=== PATIENT | male | born 1935 | race Caucasian/White ===

== ENCOUNTER 2017-04-04 06:17 | Observation (INO) ==
[2017-04-04] MEDS ORDERED: Aspirin 325 MG TABLET PO ONE (06:38)
[2017-04-04] MEDS: Nitroglycerin 0.4 MG TAB.SUBL SL ONE ×2 (06:53→07:36)
[2017-04-04 06:56] LABS: Basophils % 0.4 %; Eosinophils # 0.1 K/mcL (0.0-0.6); Eosinophils % 1.6 %; Hematocrit 31.2 % (37.5-50.1); Hemoglobin 10.1 g/dL (12.9-16.9); Immature Granulocytes % 0.4 % (0-4); Lymphocytes # 1.3 K/mcL (0.6-4.6); Lymphocytes % 26.2 %; Mean Corpuscular HGB Conc 32.4 g/dL (31.6-35.5); Mean Corpuscular Hemoglobin 32.4 pg (28.0-33.3); Mean Platelet Volume 8.9 fL (9.4-12.4); Monocytes # 0.5 K/mcL (0.0-1.3); Monocytes % 9.1 %; Neutrophils # 3.2 K/mcL (1.6-8.9); Platelet Count 166 K/mcL (140-400); Red Blood Count 3.12 M/mcL (4.19-5.50); Segmented Neutrophils % 62.3 %
--- NOTE | 2017-04-04 06:57 | Emergency Department Note ---
START Narrative - START START: 81-year-old male history of dialysis with Dr. Padgett presents with chest pain arrests that woke him up this morning, briefly patient has for a 10 chest pain with radiation into his left arm, he has nitroglycerin at home but did not take any, he did take an 81 mg aspirin, and was brought in by private vehicle for evaluation. Patient still is having chest pain, he is was an outpatient stress test today, basic chest pain workup was ordered, aspirin and nitroglycerin, likely admission see documentation by Dr. Piña and Dr. Khan <Mayo Ortiz - Last Filed: 04/04/17 06:56> Attestation Statement - Attestation Attestation: I, Andrew Hernandez MD, personally evaluated this patient and discussed their management with the resident physician. I reviewed the resident's note and agree with the documented findings, medical decision making, and plan of care. 81-year-old male with prior history of known coronary artery disease end-stage renal disease on hemodialysis presents to the emergency department with a complaint that he was awakened at 3 AM with a sharp stabbing left sided chest pain. This pain only lasted a few seconds but ever since he has continued to have a dull pressure-like pain in the left chest. He had another sharp stabbing pain in the left chest about 5 AM. No shortness of breath or diaphores No radiation of the pain. No nausea or vomiting. No cough or fever. On examination patient is in no acute distress. Heart regular rate and rhythm. Breath sounds are clear and equal bilaterally. Chest pain workup initiated. At shift change patient is being signed out to the oncoming dayshift team, Dr. Piña and Dr. Khan. <Andrew Hernandez - Last Filed: 04/04/17 07:23>
[2017-04-04 06:59] LABS: INR 1.1; Prothrombin Time 12.1 Seconds (9.4-12.1)
[2017-04-04 07:02] LABS: Activated Partial Thrombo Time 33.5 Seconds (26.0-36.0)
[2017-04-04 07:07] LABS: Calcium 9.3 mg/dL (8.6-10.8); Potassium 4.3 mEq/L (3.5-4.5)
--- NOTE | 2017-04-04 07:20 | Emergency Department Note ---
Disposition Clinical Impression: Chest pain Qualifiers: Chest pain type: unspecified Qualified Code(s): R07.9 - Chest pain, unspecified Disposition: Admitted As Inpatient Condition: Good Time of Disposition: 07:47 Chest Pain HPI - General Chief Complaint: ED Chest Pain Stated Complaint: CP Time Seen by Provider: 04/04/17 06:37 Source: patient Limitations: no limitations Vital Signs Reviewed: Yes Nursing Notes Reviewed: Yes - History of Present Illness HPI Narrative: 81-year-old male history of end-stage renal disease hemodialysis Saturday with Dr. Muniz, hypertension, hyperlipidemia, CAD s/p 1 stent presents with chest pain. States he woke up sharp left-sided chest pain radiation to the left arm around 0300. Resolved with rest. Denies any associated diaphoresis, shortness of breath, nausea or vomiting. Symptoms returned at 0500 and since then has been experiencing some pressure. He takes an Aspirin and Plavix daily. States the symptoms have been ongoing for the past week. He was scheduled for a stress test later today 0930 by his mens locker room attendant Dr. Muniz. Denies any recent illness, fevers, cough. Denies any other complaints. Denies history of blood clot, long distance travel, surgery. Does not take any other anticoagulants. He takes Lasix daily for swelling in his legs. His iv therapy nurse is Dr. Weeks Severity scale (1-10): 2 - Related Data Home Medications Medication Instructions Recorded Confirmed Aspirin Enteric Coated [Aspirin EC] 81 mg PO DAILY 04/04/17 04/04/17 Calcium Acetate [Phos-LO] 1,334 mg PO QPM 04/04/17 04/04/17 Calcium Acetate [Phos-LO] 667 mg PO BIDWM 04/04/17 04/04/17 Clopidogrel [Plavix] 75 mg PO DAILY 04/04/17 04/04/17 Furosemide [Lasix] 40 mg PO BID 04/04/17 04/04/17 Isosorbide MONOnitrate (24 HR) 30 mg PO BID 04/04/17 04/04/17 [Imdur] Nitroglycerin [Nitrostat] 0.4 mg SL Q5M PRN 04/04/17 04/04/17 [place]-3/Dha/Epa/Fish Oil [Fish Oil 1,000 mg PO DAILY 04/04/17 04/04/17 1,000 mg Softgel] Renal Vitamin [Renal Caps Softgel] 1 mg PO DAILY 04/04/17 04/04/17 Simvastatin [Zocor] 40 mg PO HS 04/04/17 04/04/17 Terazosin HCl 10 mg PO HS 04/04/17 04/04/17 Allergies Allergy/AdvReac Type Severity Reaction Status Date / Time No Known Allergies Allergy Verified 04/04/17 06:22 All systems ED: reviewed and negative except as stated. Review of Systems: As Per HPI Constitutional: Denies: fever, chills ENT ED: Denies: congestion, dysphagia Cardiovascular: Reports: chest pain. Denies: dyspnea on exertion Respiratory: Denies: cough, dyspnea Gastrointestinal: Denies: abdominal pain, nausea, vomiting Genitourinary: Denies: urgency, dysuria Musculoskeletal: Denies: back pain, neck pain Integumentary: Denies: rash, abrasion Neurological: Denies: headache Psychiatric: Denies: anxiety, depression Chest Pain PMH - Past Medical History Medical history: Reports: hyperlipidemia, hypertension, myocardial infarction, renal disease Psychiatric history: Reports: no psych history - Social History Smoking Status: Never smoker Alcohol use: Reports: none Drug use: Reports: none Physical Exam - General Limitations: no limitations General appearance: alert, in no apparent distress - Head Head exam: atraumatic, normocephalic, normal inspection - Eye Eye exam: Present: normal appearance, PERRL, EOMI. Absent: scleral icterus - ENT ENT exam: normal exam, normal oropharynx, mucous membranes moist - Neck Neck exam: Present: normal inspection, full ROM, trachea midline - Chest Chest inspection: Present: normal inspection, symmetric chest wall rise. Absent : tenderness, rash - Respiratory Respiratory exam: Present: normal lung sounds bilaterally. Absent: respiratory distress, wheezes - Cardiovascular Cardiovascular exam: Present: regular rate, normal rhythm, normal heart sounds, systolic murmur - Abdominal Exam Abdominal exam: Present: soft, Non-Tender, normal bowel sounds, hernia ( umbilical, easily reducible). Absent: tenderness, distention, guarding, rebound , rigidity - Extremities Exam Extremities exam: Present: normal inspection, full ROM, normal capillary refill , pedal edema (+1 bilateral), other (left arm fistula, palpable thrill and audible bruit). Absent: tenderness, calf tenderness - Back Exam Back exam: Present: normal inspection, full ROM. Absent: tenderness - Neurological Exam Neurological exam: Present: alert, oriented X3 - Psychiatric Psychiatric exam: Present: normal affect, normal mood - Skin Skin exam: Present: warm, dry, intact, normal color. Absent: cyanosis, diaphoresis Course - Reevaluation(s) Reevaluation #1: Chest pain workup initiated. Patient has received a full dose aspirin here. He has received one nitro and only complains of some chest pressure. Blood pressure remains stable SBP 110. Troponin was elevated 0.05. His creatinine is 4.7. Prior troponin 0.04 about 3 months ago. E.g. does not show any acute ischemic changes. Patient will benefit admission for chest pain workup to evaluate acute coronary syndrome. Chest x-ray does not reveal any cardiopulmonary process. Patient has chronic anemia. Time: 07:24 Reevaluation #2: Patient continues a have ongoing pressure. States this has been persistent over the past 2 weeks. Additional nitroglycerin given with no relief. I repeat EKG performed 0739 shows similar findings no acute ischemic changes. Patient will be admitted for chest pain rule out ACS. Patient will be started on low dose ACS heparin drip. Denies any bloody stool, black tarry stool, or hemoptysis. Impression is chest pain. Time: 07:41 - Consultations Consultation #1: Spoke with on-call hospitalist doreen Culp to admit for chest pain R/O ACS. No further orders at this time Time: 07:47 Vital Signs Temperature 98.1 F 04/04/17 06:19 Pulse Rate 82 04/04/17 06:19 Respiratory Rate 20 04/04/17 06:19 Blood Pressure 129/64 04/04/17 06:19 O2 Sat by Pulse Oximetry 97 04/04/17 06:19 Temperature 97.8 F 04/04/17 08:35 Pulse Rate 83 04/04/17 08:35 Respiratory Rate 18 04/04/17 08:35 Blood Pressure 116/57 04/04/17 08:35 O2 Sat by Pulse Oximetry 95 04/04/17 08:35 Oxygen Delivery Oxygen Delivery Room Air Chest Pain - MDM Narrative Medical decision making narrative: Patient was discussed with my attending physician who agrees with ED management and final disposition. They independently evaluated the patient. Please refer to their attestation to this encounter for additional information. This note was generated by [employer] voice recognition software and as a result grammatical or spelling errors may occur using this program. - Medical Records Medical records reviewed: Yes I reviewed the patient's medical records. - Lab Data Lab results reviewed: Yes I reviewed the patient's lab results. Result diagrams: 04/04/17 06:37 04/04/17 06:37 Lab Results 04/04/17 04/04/17 04/04/17 Range/Units 06:37 06:37 06:37 WBC 5.1 (4.3-11.1) K/mcL RBC 3.12 L (4.19-5.50) M/mcL Hgb 10.1 L (12.9-16.9) g/dL Hct 31.2 L (37.5-50.1) % MCV 100.0 (83.0-100.0) fL MCH 32.4 (28.0-33.3) pg MCHC 32.4 (31.6-35.5) g/dL RDW 14.0 (11.5-14.5) % Plt Count 166 (140-400) K/mcL MPV 8.9 L (9.4-12.4) fL Immature Gran % 0.4 (0-4) % Seg Neutrophils % 62.3 % Lymphocytes % 26.2 % Monocytes % 9.1 % Eosinophils % 1.6 % Basophils % 0.4 % Neutrophils # 3.2 (1.6-8.9) K/mcL Lymphocytes # 1.3 (0.6-4.6) K/mcL Monocytes # 0.5 (0.0-1.3) K/mcL Eosinophils # 0.1 (0.0-0.6) K/mcL Basophils # 0.0 (0.0-0.2) K/mcL PT 12.1 (9.4-12.1) Seconds INR 1.1 APTT 33.5 (26.0-36.0) Seconds Sodium 138 (136-145) mEq/L Potassium 4.3 (3.5-4.5) mEq/L Chloride 95 L (98-109) mEq/L Carbon Dioxide 28 (19-29) mEq/L BUN 28 H (8-26) mg/dL Creatinine 4.77 H (0.72-1.25) mg/dL Est GFR ( Amer) 14 L (> 60) Est GFR (Non-Af Amer) 12 L (> 60) BUN/Creatinine Ratio 6 (6-26) Glucose 97 (70-99) mg/dL Calculated Osmolality 291 (280-300) Calcium 9.3 (8.6-10.8) mg/dL Troponin I (0-0.03) ng/mL B-Natriuretic Peptide (0-100) pg/mL 04/04/17 04/04/17 Range/Units 06:37 06:37 WBC (4.3-11.1) K/mcL RBC (4.19-5.50) M/mcL Hgb (12.9-16.9) g/dL Hct (37.5-50.1) % MCV (83.0-100.0) fL MCH (28.0-33.3) pg MCHC (31.6-35.5) g/dL RDW (11.5-14.5) % Plt Count (140-400) K/mcL MPV (9.4-12.4) fL Immature Gran % (0-4) % Seg Neutrophils % % Lymphocytes % % Monocytes % % Eosinophils % % Basophils % % Neutrophils # (1.6-8.9) K/mcL Lymphocytes # (0.6-4.6) K/mcL Monocytes # (0.0-1.3) K/mcL Eosinophils # (0.0-0.6) K/mcL Basophils # (0.0-0.2) K/mcL PT (9.4-12.1) Seconds INR APTT (26.0-36.0) Seconds Sodium (136-145) mEq/L Potassium (3.5-4.5) mEq/L Chloride (98-109) mEq/L Carbon Dioxide (19-29) mEq/L BUN (8-26) mg/dL Creatinine (0.72-1.25) mg/dL Est GFR ( Amer) (> 60) Est GFR (Non-Af Amer) (> 60) BUN/Creatinine Ratio (6-26) Glucose (70-99) mg/dL Calculated Osmolality (280-300) Calcium (8.6-10.8) mg/dL Troponin I 0.05 H* (0-0.03) ng/mL B-Natriuretic Peptide 261 H (0-100) pg/mL - Radiology Data Radiology results reviewed: Yes I reviewed the patient's radiology results. Chest X-Ray 04/04/17 06:22 IMPRESSION: No acute cardiopulmonary disease. D/ / Etienne Ley MD / Etienne Ley MD Interpreting Provider: Etienne Ley MD - EKG Data EKG attestation: Yes I reviewed and interpreted this EKG. EKG results narrative: EKG performed 620 sinus rhythm 79 bpm there are premature ventricular complexes , narrow QRS 82, no ST elevations or depression, no T wave inversion, good R wave progression, intervals are within normal limits. Compared to old EKG 01/13 shows similar consistent findings of sinus rhythm with occasional supraventricular premature complexes. No acute ischemic changes. Heart Score - Score History: Slightly Suspicious EKG: Normal Age: Greater than 65 Risk Factors: Equal/Greater than 3 risk factor or history of atherosclerotic disease Troponin: Less than normal limit HEART Score Total: 4 Attestation Statement - Attestation Attestation: I examined this patient and my medical decision-making was reviewed with the Resident Physician. I agree with the documented findings, disposition and treatment plan as described except to the extent set forth below. Chest pain is gone, pressure persists but is significantly improved. Associated w SOB, no SOB currently. No sx of GIB or other abnormal bleeding, asked by Dr. Piña and confirmed by me. Repeat EKG unchanged, pain now persistent for 2-3 weeks. Agree with admisison for further eval.
[2017-04-04] MEDS ORDERED: 0.9 % Sodium Chloride 500 ML ONE (07:33)
[2017-04-04] MEDS ORDERED: Nitroglycerin 0.4 MG TAB.SUBL SL ONE (07:33)
[2017-04-04] MEDS ORDERED: 0.9 % Sodium Chloride 1,000 ML IVC SCH (07:45)
[2017-04-04] MEDS ORDERED: *HR* Morphine 2 MG/ML SYRINGE IVP ONE (07:47)
[2017-04-04] MEDS ORDERED: *HR* Heparin 5,000 UNIT/ML VIAL IVP PRN ×2 (07:47)
[2017-04-04] MEDS ORDERED: *HR* Heparin 5,000 UNIT/ML VIAL IVP ONE (07:47)
[2017-04-04] MEDS ORDERED: Heparin 25,000 UNIT/500 ML D5W 25,000 UNIT/500 ML MLS IVC SCH (08:00)
--- NOTE | 2017-04-04 09:07 | Internal Med History&Physical ---
Date of Encounter: 04/04/17 Time of Encounter: 08:00 Assessment and Plan (1) Chest pain Current visit: Yes Status: Acute -Patient with history of coronary artery disease with stent 1 in 2006 -In the ER, patients first troponin was 0.05 but no significant EKG changes. -Will trend cardiac biomarkers and order echocardiogram. -Will consult cardiology and appreciate recommendations. Qualifiers: Chest pain type: unspecified Qualified Code(s): R07.9 - Chest pain, unspecified (2) CAD (coronary artery disease) Current visit: Yes Status: Acute -History of coronary artery disease with stent 1 in 2006 -Workup as above Qualifiers: Qualified Code(s): I25.10 - Atherosclerotic heart disease of [place] coronary artery without angina pectoris (3) ESRD (end stage renal disease) on dialysis Current visit: Yes Status: Acute -Patient managed on hemodialysis by nephrology () scheduled on Wednesdays and Fridays. -Will consult nephrology and appreciate recommendations. (4) HTN (hypertension) Current visit: Yes Status: Acute -Continue home medications Qualifiers: Hypertension type: essential hypertension Qualified Code(s): I10 - Essential (primary) hypertension (5) HLD (hyperlipidemia) Current visit: Yes Status: Acute -Continue home medications Qualifiers: Hyperlipidemia type: unspecified Qualified Code(s): E78.5 - Hyperlipidemia , unspecified (6) Chronic anemia Current visit: Yes Status: Acute -Stable; suspect secondary to end-stage renal disease -Will continue to monitor. (7) DVT prophylaxis Current visit: Yes Status: Acute -Subcutaneous heparin Internal Medicine - H&P: HPI Chief complaint: chest pain Admitted From: Home Plans for Post Hospital Care: Home History of present illness: Patient is a 81-year-old male with past medical history significant for end- stage renal disease, coronary artery disease (stent 1 in 2006) hypertension and hyperlipidemia who presents to the ER on 04/04/17 with chest pain. Patient reports that substernal chest pain woke him up this morning with a severity of 7 out of 10 lasting for seconds without any provoking or relieving factors. Patient denies any radiation of pain and denies any associated symptoms. Patient states that his body bumper was setting up a stress test for him in the near future. In the ER, patients first troponin was 0.05 but no significant EKG changes. Patient will be admitted to the medical surgical floor for ACS rule out. Past Med Surg Social Fam HX - Past Medical History Medical history: hyperlipidemia, hypertension, myocardial infarction, renal disease Psychiatric history: no psych history - Social History Smoking Status: Never smoker Smokeless Tobacco Status: No Alcohol use: none Drug use: none Internal Medicine - H&P: Meds 3 Allergy/AdvReac Type Severity Reaction Status Date / Time No Known Allergies Allergy Verified 04/04/17 06:22 All Systems PM: A 10-system review of systems was performed and is negative for pertinent findings except as documented above in the HPI. - Constitutional Vitals: Temp Pulse Resp BP Pulse Ox 97.8 F 83 18 116/57 95 04/04/17 08:35 04/04/17 08:35 04/04/17 08:35 04/04/17 08:35 04/04/17 08:35 General appearance: Present: A&O X 3, no acute distress - Head Head exam: Present: normocephalic - Eye Eye exam: Present: normal appearance - ENT ENT exam: Present: mucous membranes moist - Respiratory Respiratory exam: Present: CTAB. Absent: accessory muscle use, rales, rhonchi, wheezes - Cardiovascular Cardiovascular exam: Present: RRR, +S1, +S2. Absent: diastolic murmur, gallop, rubs, systolic murmur - GI/Abdominal GI/Abdominal exam: Present: normal bowel sounds, soft, no peritoneal signs. Absent: distended, tenderness - Extremities Exam Extremities exam: Present: pedal edema - Neurological Exam Neurological exam: Present: oriented X3, no focal deficits - Psychiatric Psychiatric exam: Present: normal mood - Skin Skin exam: Present: normal color Internal Med - H&P Results - Labs CBC & Chem 7: 04/04/17 06:37 04/04/17 06:37
[2017-04-04] MEDS ORDERED: Naloxone 0.4 MG/ML INJ IVP PRN (09:17)
--- NOTE | 2017-04-04 10:11 | Nephrology Consult Note ---
Date of Encounter: 04/04/17 Time of Encounter: 09:55 Assessment and Plan (1) ESRD (end stage renal disease) on dialysis Current Visit: Yes Status: Acute Chest pain, cardiac workup in progress. Possible LHC today. ESRD-No HD today, keeping MWF schedule. (2) Chest pain Current Visit: Yes Status: Acute Qualifiers: Chest pain type: unspecified Qualified Code(s): R07.9 - Chest pain, unspecified History of Present Illness - Reason for Consult end stage renal disease - History of Present Illness Mr. 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 Last dialysis yesterday. Mr. Del Cid presented to ER this morning by private vehicle with transient episodes of chest pain that awakened him at 0300 and 0500. Left sided 7/10. He states he did not take his NTG but did take a low dose aspirin. Other PMH- hypertension, hyperlipidemia, CAD s/p 1 stent. In ER, EKG without significant changes, trop 0.05. Mr. Del Cid was scheduled outpatient today for stress test. At time of consult, he states he is pain free and thinks may be going for LHC today. Son at bedside. Past Med Surg Social Fam HX - Past Medical History Medical history: hyperlipidemia, hypertension, myocardial infarction, renal disease Psychiatric history: no psych history - Social History Smoking Status: Never smoker Smokeless Tobacco Status: No Alcohol use: none Drug use: none - Family History Father Living Status: Cause of : cancer Mother Living Status: Cause of : MD Hx Family Cardiac Disorders: Yes Medications and Allergies Aspirin Enteric Coated [Aspirin EC] 81 mg PO DAILY 04/04/17 [History] Clopidogrel [Plavix] 75 mg PO DAILY 04/04/17 [History] Furosemide [Lasix] 40 mg PO BID 04/04/17 [History] Isosorbide MONOnitrate (24 HR) [Imdur] 30 mg PO BID 04/04/17 [History] Nitroglycerin [Nitrostat] 0.4 mg SL Q5M PRN 04/04/17 [History] [place]-3/Dha/Epa/Fish Oil [Fish Oil 1,000 mg Softgel] 1,000 mg PO DAILY 04/04/17 [History] Renal Vitamin [Renal Caps Softgel] 1 mg PO DAILY 04/04/17 [History] Simvastatin [Zocor] 40 mg PO HS 04/04/17 [History] Terazosin HCl 10 mg PO HS 04/04/17 [History] 3 Allergy/AdvReac Type Severity Reaction Status Date / Time No Known Allergies Allergy Verified 04/04/17 06:22 Review of Systems All Systems: reviewed and no additional remarkable complaints except as stated Exam - Vital Signs Vital signs: Initial Vital Signs Temp Pulse Resp BP Pulse Ox 98.1 F 82 20 129/64 97 04/04/17 06:19 04/04/17 06:19 04/04/17 06:19 04/04/17 06:19 04/04/17 06:19 Vital Signs - Last 8 Hours Temp Pulse Resp BP Pulse Ox 04/04/17 08:35 97.8 F 83 18 116/57 95 04/04/17 08:34 18 116/71 Intake and Output 04/03/17 04/04/17 04/04/17 23:59 07:59 15:59 Other: Meal npo Percent of Meal Consumed 0% - General Appearance General appearance: well-developed, well-nourished, appears started age EENT: mucous membranes moist Neck: no JVD Respiratory: clear Cardiology: edema, regular rate, regular rhythm Gastrointestinal: normoactive bowel sounds, no tenderness, distended Integumentary: warm and dry Neurologic: alert and oriented x3 Psychiatric: mood/affect appropriate, cooperative Results - Lab Results 04/04/17 06:37 04/04/17 06:37 Most recent lab results Calcium 9.3 mg/dL (8.6-10.8) 04/04/17 06:37 Consult Discharge Plan - Plan Referrals: NONE,PCP [Primary Care Provider] -
[2017-04-04 13:31] LABS: Hematocrit 29.6 % (37.5-50.1); Hemoglobin 9.7 g/dL (12.9-16.9); Mean Corpuscular HGB Conc 32.8 g/dL (31.6-35.5); Mean Corpuscular Hemoglobin 32.6 pg (28.0-33.3); Mean Corpuscular Volume 99.3 fL (83.0-100.0); Mean Platelet Volume 8.6 fL (9.4-12.4); Platelet Count 129 K/mcL (140-400); Red Blood Count 2.98 M/mcL (4.19-5.50); Red Cell Distribution Width 13.8 % (11.5-14.5)
--- NOTE | 2017-04-04 13:31 | Cardiology Consult Note ---
<WillianGabrieladave Maki - Last Filed: 04/04/17 13:50> Date of Encounter: 04/04/17 Time of Encounter: 12:30 Assessment and Plan (1) Chest pain Current Visit: Yes Status: Acute Per cardiology: -Admits to chest "pressure" that has been constant. -Reports woke up with chest pain that was sharp, lasted a few seconds. Resolved spontaneously. -Denies exertional symptoms. -Denies current chest pain, however admits to chest pressure that has been constant for a few weeks. -ECG with SR, frequent PVCs. -Troponin mildly elated. -TTE pending. -On heparin drip. -Will continue to monitor. -Trend troponins. Qualifiers: Chest pain type: unspecified Qualified Code(s): R07.9 - Chest pain, unspecified (2) Elevated troponin Current Visit: Yes Status: Acute Per cardiology: -Troponin 0.05. -ECG with SR, frequent PVCs. -Denies current chest pain, however admits to pressure. -TTE pending. -Trend troponins. Pending results consider stress vs. LHC. (3) ESRD (end stage renal disease) on dialysis Current Visit: Yes Status: Chronic Per cardiology: -KNown ESRD on dialysis. -Management per primary and nephrology services. (4) CAD (coronary artery disease) Current Visit: Yes Status: Chronic Per cardiology: -Known CAD with previous LHC 2007 with primary investigative research specialist noted reviewed and reported RCA stent and 70% LAD lesion, not amendable to PCI. -PRevious TTE 2013 with LVEF 60-65%, no wall motion abnormalities. -TTE pending. -Continue pateint's asa, statin, and plavix. -Further recommendations pending TTE and troponin trend. -Per review of home medication list, do not see patient was on a beta marylou. Will add low dose beta marylou. Qualifiers: Coronary Disease-Associated Artery/Lesion type: [place] artery [place] vs. transplanted heart: [place] heart Associated angina: with unspecified angina Qualified Code(s): I25.119 - Atherosclerotic heart disease of [place] coronary artery with unspecified angina pectoris Discussion w patient/family: The assessment and plan as outlined above was discussed with the patient who expressed understanding and agreement. All questions were answered. Thank you for involving us in the care of your patient. Please call with any questions. Discussed and reviewed with . History of Present Illness Consult date: 04/04/17 Requesting physician: Gerber Leiva Consult reason: chest pain Chief complaint: chest pain History of present illness: Mr. Del Cid is a 81 year old male with a relevant past medical history of CAD s/p PCI 2007, ESRD on dialysis, hyperlipidemia, DC, DM. Patient states for the past 2 weeks has had constant "chest pressure." Patient states had a stress test ordered by asp net software developer. Patient denies aggravating or alleviating factors with chest pressure. Patient denies exertional chest pain. Patient states today he was awaken by sharp chest pain about 0300. Patient states pain lasted for a few seconds and resolved spontaneoulsy. Patient reports around 0500 he had sudden onset on same sharp chest pain while resting in his chair. Patient denies current chest pain, however has chest pressure that is constant. Patient denies increased shortness of breath or increased fatigue. Past Med Surg Social Fam HX - Past Medical History Attestation: Yes The following information was validated with the patient. Source: patient, old records reviewed Medical history: hyperlipidemia, hypertension, myocardial infarction, renal disease Psychiatric history: no psych history - Social History Smoking Status: Never smoker Smokeless Tobacco Status: No Alcohol use: none Drug use: none - Family History Father Living Status: Cause of : cancer Mother Living Status: Cause of : DC Hx Family Cardiac Disorders: Yes Medications and Allergies Aspirin Enteric Coated [Aspirin EC] 81 mg PO DAILY 04/04/17 [History] Clopidogrel [Plavix] 75 mg PO DAILY 04/04/17 [History] Furosemide [Lasix] 40 mg PO BID 04/04/17 [History] Isosorbide MONOnitrate (24 HR) [Imdur] 30 mg PO BID 04/04/17 [History] Nitroglycerin [Nitrostat] 0.4 mg SL Q5M PRN 04/04/17 [History] [place]-3/Dha/Epa/Fish Oil [Fish Oil 1,000 mg Softgel] 1,000 mg PO DAILY 04/04/17 [History] Renal Vitamin [Renal Caps Softgel] 1 mg PO DAILY 04/04/17 [History] Simvastatin [Zocor] 40 mg PO HS 04/04/17 [History] Terazosin HCl 10 mg PO HS 04/04/17 [History] 3 Allergy/AdvReac Type Severity Reaction Status Date / Time No Known Allergies Allergy Verified 04/04/17 06:22 All Systems Review: A 10-system review of systems was performed and is negative for pertinent findings except as documented above in the HPI. - Cardiovascular Cardiovascular: as per HPI, chest pain at rest Physical Examination Vital Signs, Last 4 Hours Temp Pulse Resp BP Pulse Ox 04/04/17 11:50 97.6 F 88 17 126/66 96 General: Conversant, No Apparent Distress HEENT: Atraumatic, Normocephaly, Mucus Membranes Moist Neck: No JVD, Normal carotid pulses Cardiac: Reg Rate and Rhythm, Normal S1 and S2, No Murmur Lungs: Normal Breath Sounds, No Wheeze, Rales, Rhonchi Neuro: Alert and responsive, No focal deficits noted Abdomen: Soft, Non-Tender Skin: No rashes noted on visualized skin Musculoskeletal: No Chest Wall Tenderness Extremities: No Clubbing, No Cyanosis, Normal Pulses, Other (Mild bilateral pedal edema noted, non-pitting. ) Results 04/04/17 13:23 04/04/17 06:37 Impressions Chest X-Ray 04/04/17 06:22 IMPRESSION: No acute cardiopulmonary disease. D/ / Etienne Ley MD / Etienne Ley MD Interpreting Provider: Etienne Ley MD Active Medications Heparin Sodium (Porcine) (Heparin) 4,000 unit IVP Q6HR PRN PRN Reason: SEE COMMENTS Stop: 10/04/17 07:48 Heparin Sodium (Porcine) (Heparin) 2,000 unit IVP Q6H PRN PRN Reason: SEE COMMENTS Stop: 10/04/17 07:48 Sodium Chloride (0.9 % Sodium Chloride) 1,000 mls @ 50 mls/hr IVC .Q20H BLANCA Stop: 10/04/17 07:46 Heparin Sodium/Dextrose (Heparin 25,000 Unit/500 Ml D5w) 25,000 unit in 500 mls @ 20.684 mls/hr IVC .Q24H BLANCA; 12 UNIT/KG/HR PRN Reason: Protocol Stop: 10/04/17 08:01 Last Admin: 04/04/17 08:04 Dose: 12 unit/kg/hr, 20.684 mls/hr Naloxone HCl (Narcan) 0.4 mg IVP Q2MIN PRN PRN Reason: Opioid Reversal Stop: 10/04/17 09:18 Laboratory Tests 04/04/17 04/04/17 04/04/17 06:37 06:37 06:37 Hgb 10.1 L Creatinine 4.77 H Troponin I 0.05 H* - Imaging and Cardiology Chest Xray: report reviewed Stress Test: report reviewed Echo: pending, report reviewed - EKG Interpretation EKG results cardiology: personally reviewed (ECG with SR, PVCs, HR 86.), other ( Telemetry reviewed with average HR noted to be 86, SR. PVCs and PACs noted.) Consult Discharge Plan - Plan Referrals: NONE,PCP [Primary Care Provider] - <Melissa Tucker - Last Filed: 04/04/17 14:27> Date of Encounter: 04/04/17 - Attending Attestation 81 YOM with h/o PCI to the RCA and LAD 70% disease in 2006 who presents with typical angina. Patient with h/o ESRD on HD with trivial troponins and unremarkable EKG. NST and ECHO to evaluate for ischemia and SHD. Assessment and Plan Discussion w patient/family: The assessment and plan as outlined above was discussed with the patient and/or family members who expressed understanding and agreement. All questions were answered. Thank you for involving us in the care of your patient. Please call with any questions. History of Present Illness History of present illness: Mr. Del Cid is a 81 year old male All Systems Review: A 10-system review of systems was performed and is negative for pertinent findings except as documented above in the HPI. Physical Examination Vital Signs, Last 4 Hours Temp Pulse Resp BP Pulse Ox 04/04/17 11:50 97.6 F 88 17 126/66 96 Results 04/04/17 13:23 04/04/17 06:37 Lab Results 04/04/17 04/04/17 04/04/17 13:23 13:23 13:23 WBC 4.8 Hgb 9.7 L Hct 29.6 L Plt Count 129 L INR 1.2 APTT 102.0 H D Troponin I 0.03
[2017-04-04 13:36] LABS: INR 1.2; Prothrombin Time 12.7 Seconds (9.4-12.1)
--- NOTE | 2017-04-04 18:59 | Electrocardiograph Report ---
[place] [id number] Test Date: 2017-04-04 Pat Name: George Del Cid Department: 102 Room: 2A Gender: M Paper Coating Supervisor: : 1935 Requested By: Andrew Hernandez Order Number: [id number] Reading MD: Ernst Pino DO Measurements Intervals [place] Rate: 79 P: 55 ME: 179 QRS: 0 QRSD: 82 T: 30 QT: 358 QTc: 393 Interpretive Statements SINUS RHYTHM WITH FREQUENT VENTRICULAR PREMATURE COMPLEXES Electronically Signed On 04-04-2017 18:57:58 EST by Ernst Pino DO
--- NOTE | 2017-04-04 19:00 | Electrocardiograph Report ---
[place] [id number] Test Date: 2017-04-04 Pat Name: George Del Cid Department: 104 Room: 2A Gender: M Compliance Program Manager: : 1935 Requested By: Alexander Piña Order Number: [id number] Reading MD: Ernst Pino DO Measurements Intervals [place] Rate: 86 P: 73 PA: 177 QRS: -16 QRSD: 84 T: 33 QT: 389 QTc: 432 Interpretive Statements SINUS RHYTHM WITH FREQUENT VENTRICULAR PREMATURE COMPLEXES Electronically Signed On 04-04-2017 18:58:31 EST by Ersnt Pino DO
[2017-04-05 02:40] LABS: Basophils % 0.6 %; Eosinophils # 0.1 K/mcL (0.0-0.6); Eosinophils % 2.2 %; Hematocrit 29.7 % (37.5-50.1); Hemoglobin 9.7 g/dL (12.9-16.9); Immature Granulocytes % 0.2 % (0-4); Lymphocytes # 1.1 K/mcL (0.6-4.6); Lymphocytes % 22.9 %; Mean Corpuscular HGB Conc 32.7 g/dL (31.6-35.5); Mean Platelet Volume 8.8 fL (9.4-12.4); Monocytes # 0.4 K/mcL (0.0-1.3); Monocytes % 8.8 %; Neutrophils # 3.2 K/mcL (1.6-8.9); Platelet Count 140 K/mcL (140-400); Red Blood Count 2.94 M/mcL (4.19-5.50); Red Cell Distribution Width 13.8 % (11.5-14.5); Segmented Neutrophils % 65.3 %
[2017-04-05 03:09] LABS: Calcium 8.4 mg/dL (8.6-10.8)
--- NOTE | 2017-04-05 09:26 | Nephrology Progress Note ---
Date of Encounter: 04/05/17 Time of Encounter: 09:05 - Assessment and Plan (1) ESRD (end stage renal disease) on dialysis Current Visit: Yes Status: Chronic Chest pain, cardiac workup in progress. Possible stress test today. ESRD- HD today, keeping MWF schedule. Orders given. (2) Chest pain Current Visit: Yes Status: Acute Qualifiers: Chest pain type: unspecified Qualified Code(s): R07.9 - Chest pain, unspecified Subjective Interval history: Resting quietly. Denies further chest pain. States to have stress test today. Objective - Vital Signs Vital signs: Vital Signs Temp Pulse Resp BP Pulse Ox 04/05/17 07:18 97.9 F 81 16 131/68 94 04/05/17 04:13 97.9 F 80 16 133/61 95 04/05/17 00:36 97.9 F 64 16 118/66 96 04/04/17 20:27 98.0 F 83 18 130/80 96 04/04/17 16:18 97.8 F 73 17 130/73 96 04/04/17 11:50 97.6 F 88 17 126/66 96 Intake and Output 04/04/17 04/05/17 04/05/17 23:59 07:59 15:59 Intake Total 103 / 103 129 / 129 Balance 103 / 103 129 / 129 Intake: IV Fluids 103 / 103 129 / 129 Heparin 25,000 UNIT/500 ML D5W 103 / 103 129 / 129 25,000 unit In 500 ml @ 12 UNIT /KG/HR 20.684 mls/hr IVC .Q24H BLANCA Rx#:[id number] Other: # Voids 1 Weight 86.183 kg Patient Weight 04/05/17 23:59 Weight 86.183 kg - General Appearance General appearance: Present: well-developed, well-nourished, appears started age EENT: Present: mucous membranes moist Neck: Present: no JVD Respiratory: Present: clear Cardiology: Present: edema, regular rate, regular rhythm Gastrointestinal: Present: normoactive bowel sounds, no tenderness Integumentary: Present: warm and dry Neurologic: Present: alert and oriented x3 Psychiatric: Present: mood/affect appropriate, cooperative - Lab 04/05/17 02:32 04/05/17 02:32 Most recent lab results Calcium 8.4 mg/dL (8.6-10.8) L 04/05/17 02:32 Consult Discharge Plan - Plan Referrals: NONE,PCP [Primary Care Provider] -
[2017-04-05] MEDS ORDERED: Aspirin Enteric Coated 81 MG Tablet PO SCH (10:00)
--- NOTE | 2017-04-05 10:26 | Cardiology Progress Note ---
Date of Encounter: 04/05/17 Time of Encounter: 09:00 Assessment and Plan (1) Chest pain Current Visit: Yes Status: Acute Per cardiology: -Denies current chest pain or pressure this morning. -ECG with SR, frequent PVCs. -Troponin mildly elated on admission. -TTE pending. -On heparin drip. -Will proceed with stress test this morning. -Further recommendations pending stress and TTE. Qualifiers: Chest pain type: unspecified Qualified Code(s): R07.9 - Chest pain, unspecified (2) Elevated troponin Current Visit: Yes Status: Acute Per cardiology: -Troponin 0.05, 0.03, 0.03, 0.03. -ECG with SR, frequent PVCs. -Denies current chest pain. -TTE pending. -Discussed and reviewed with , will proceed with stress test today. -Will discontinue heparin drip. (3) ESRD (end stage renal disease) on dialysis Current Visit: Yes Status: Chronic Per cardiology: -KNown ESRD on dialysis. -Management per primary and nephrology services. (4) CAD (coronary artery disease) Current Visit: Yes Status: Chronic Per cardiology: -Known CAD with previous [facility] 2007 with primary cubing machine tender noted reviewed and reported RCA stent and 70% LAD lesion, not amendable to PCI. -PRevious TTE 2013 with LVEF 60-65%, no wall motion abnormalities. -TTE pending. -on asa, statin, beta marylou, and plavix. -Further recommendations pending TTE stress. Qualifiers: Coronary Disease-Associated Artery/Lesion type: [place] artery [place] vs. transplanted heart: [place] heart Associated angina: with unspecified angina Qualified Code(s): I25.119 - Atherosclerotic heart disease of [place] coronary artery with unspecified angina pectoris Discussion w patient/family: The assessment and plan as outlined above was discussed with the patient who expressed understanding and agreement. All questions were answered. Thank you for involving us in the care of your patient. Please call with any questions. Discussed and reviewed with . Subjective Principal diagnosis: chest pain Interval history: Denies current chest pain or pressure. Objective Vital Signs, Last 4 Hours Temp Pulse Resp BP Pulse Ox 04/05/17 07:18 97.9 F 81 16 131/68 94 General: Conversant, No Apparent Distress HEENT: Atraumatic, Normocephaly, Mucus Membranes Moist Neck: No JVD, Normal carotid pulses Cardiac: Reg Rate and Rhythm, Normal S1 and S2, No Murmur Lungs: Normal Breath Sounds, No Wheeze, Rales, Rhonchi Neuro: Alert and responsive, No focal deficits noted Abdomen: Soft, Non-Tender Skin: No rashes noted on visualized skin Musculoskeletal: No Chest Wall Tenderness Extremities: No Clubbing, No Cyanosis, Normal Pulses, Other (Mild bilateral pedal edema noted, non-pitting. ) Results 04/05/17 02:32 04/05/17 02:32 Lab Results Active Medications Aspirin (Aspirin Ec) 81 mg PO DAILY BLANCA Stop: 10/05/17 10:01 Atorvastatin Calcium (Lipitor) 40 mg PO HS BLANCA Stop: 10/05/17 21:01 Heparin Sodium (Porcine) (Heparin) 4,000 unit IVP Q6HR PRN PRN Reason: SEE COMMENTS Stop: 10/04/17 07:48 Heparin Sodium (Porcine) (Heparin) 2,000 unit IVP Q6H PRN PRN Reason: SEE COMMENTS Stop: 10/04/17 07:48 Sodium Chloride (0.9 % Sodium Chloride) 1,000 mls @ 50 mls/hr IVC .Q20H BLANCA Stop: 10/04/17 07:46 Last Admin: 04/04/17 20:07 Dose: 50 mls/hr Heparin Sodium/Dextrose (Heparin 25,000 Unit/500 Ml D5w) 25,000 unit in 500 mls @ 20.684 mls/hr IVC .Q24H BLANCA; 12 UNIT/KG/HR PRN Reason: Protocol Stop: 10/04/17 08:01 Last Titration: 04/05/17 04:32 Dose: 10.32 unit/kg/hr, 17.8 mls/hr Metoprolol Tartrate (Lopressor) 12.5 mg PO BID BLANCA Stop: 10/04/17 21:01 Last Admin: 04/04/17 21:04 Dose: 12.5 mg Naloxone HCl (Narcan) 0.4 mg IVP Q2MIN PRN PRN Reason: Opioid Reversal Stop: 10/04/17 09:18 Laboratory Tests 04/04/17 04/04/17 04/04/17 06:37 13:23 19:48 Hgb Creatinine Troponin I 0.05 H* 0.03 0.03 12/08/17 12/08/17 12/08/17 02:32 02:32 02:32 Hgb 9.7 L Creatinine 5.67 H Troponin I 0.03 - Imaging and Cardiology Chest Xray: report reviewed Stress Test: pending Echo: pending - EKG Interpretation EKG results cardiology: other (Telemetry reviewed with average HR previous 12 hours noted to be 71, sinus rhythm. PVCs and PACs noted.) Consult Discharge Plan - Plan Referrals: NONE,PCP [Primary Care Provider] -
[2017-04-05] MEDS ORDERED: Regadenoson 0.4 MG/5 ML SYRINGE IVP ONE (11:09)
[2017-04-05 14:48] LABS: Hepatitis B Surface Antibody 0.48 mIU/mL; Hepatitis B Surface Antigen Nonreactive (Nonreactive)
[2017-04-05] MEDS ORDERED: 0.9 % Sodium Chloride 250 ML IVC PRN (15:00)
--- NOTE | 2017-04-05 16:04 | Discharge Summary ---
<CurtisJeet Lazaro - Last Filed: 04/05/17 16:02> Date of Encounter: 04/05/17 Time of Encounter: 16:02 - Discharge Diagnosis (1) Chest pain Priority: Primary Status: Acute Qualifiers: Chest pain type: unspecified Qualified Code(s): R07.9 - Chest pain, unspecified (2) CAD (coronary artery disease) Priority: Secondary Status: Chronic Qualifiers: Coronary Disease-Associated Artery/Lesion type: [place] artery [place] vs. transplanted heart: [place] heart Associated angina: with unspecified angina Qualified Code(s): I25.119 - Atherosclerotic heart disease of [place] coronary artery with unspecified angina pectoris (3) ESRD (end stage renal disease) on dialysis Priority: Secondary Status: Chronic (4) Chronic anemia Priority: Secondary Status: Acute (5) HLD (hyperlipidemia) Priority: Secondary Status: Acute Qualifiers: Hyperlipidemia type: unspecified Qualified Code(s): E78.5 - Hyperlipidemia , unspecified (6) HTN (hypertension) Priority: Secondary Status: Acute Qualifiers: Hypertension type: essential hypertension Qualified Code(s): I10 - Essential (primary) hypertension (7) DVT prophylaxis Priority: Secondary Status: Acute - Discharge Medications Prescriptions: Atorvastatin [Lipitor] 40 mg PO HS #30 tablet Metoprolol [Lopressor] 12.5 mg PO BID #60 tablet Home Medications: Aspirin Enteric Coated [Aspirin EC] 81 mg PO DAILY 04/04/17 [History] Clopidogrel [Plavix] 75 mg PO DAILY 04/04/17 [History] Furosemide [Lasix] 40 mg PO BID 04/04/17 [History] Isosorbide MONOnitrate (24 HR) [Imdur] 30 mg PO BID 04/04/17 [History] Nitroglycerin [Nitrostat] 0.4 mg SL Q5M PRN 04/04/17 [History] [place]-3/Dha/Epa/Fish Oil [Fish Oil 1,000 mg Softgel] 1,000 mg PO DAILY 04/04/17 [History] Renal Vitamin [Renal Caps Softgel] 1 mg PO DAILY 04/04/17 [History] Terazosin HCl 10 mg PO HS 04/04/17 [History] Atorvastatin [Lipitor] 40 mg PO HS #30 tablet 04/05/17 [Rx] Metoprolol [Lopressor] 12.5 mg PO BID #60 tablet 04/05/17 [Rx] Allergies/Adverse Reactions: 3 Allergy/AdvReac Type Severity Reaction Status Date / Time No Known Allergies Allergy Verified 04/04/17 06:22 Procedures/tests Complete & Pending: Procedures Performed prior 72 hours Category Date Time Status NM nena perf SPECT multi [NM] Routine Exams 04/05/17 09:49 Taken EV echocardiogram Routine Y 04/04/17 09:19 Completed SP pharm nuclear stress Routine Y 04/05/17 09:49 Completed Date of admission: 04/04/17 07:58 Primary care physician: PCP NONE Consults: 04/04/17 09:06 Consult to Nutrition [CONS] Routine Comment: Consulting Provider: NUTRITION Reason for Dietary Consult: MST Score 04/04/17 09:20 Consult to Cardiology [CONS] Routine Comment: Consulting Provider: Cardiology Maryam Reason for Consult: chest pain Time Notified: 09:30 Call Completed: Yes 04/04/17 09:21 Consult to Nephrology [CONS] Routine Consulting Provider: [facility] Spcarmand SEBASTIAN Reason for Consult: HD management Time Notified: 09:30 Call Completed: Yes 04/05/17 15:00 Consult to Dialysis [CONS] ONCE 04/06/17 15:00 Consult to Dialysis [CONS] ONCE Discharging clinician: Amor Reynolds Anticipated date of discharge: 04/05/17 - Patient Status Disposition: Home, Self-Care Condition: Fair Functional capacity at discharge: independent ambulation Overall status at discharge: patient is progressing back to baseline - Discharge Instructions Instructions: Coronary Artery Disease (DC), Chest Pain (DC), Chronic Hypertension (DC), Anemia (GEN) Follow Up With: Larry Ramos MD [Partnered Physician] - 04/11/17 9:30 am (Please follow up as schedule for hospital follow up) Additional Instructions: You have another appt. with Dr. Ramos on May 09 at 11:30 to get Established.. - Diet and Activity Activity: increase activity as tolerated Diet: advance to your usual diet Hospital course: Mr. Del Cid is a 81 year old male with past medical history significant for end- stage renal disease, coronary artery disease with stenting 1 in 2006, hypertension, hyperlipidemia who presented to the ER on 04/04/17 with chest pain. Chest pain was substernal which will come up in the a.m., 7/10 in severity without provoking factors. No radiation or other associated symptoms. Troponin initially elevated and ED at 0.05 but this trended down. EKG showed normal sinus rhythm with frequent PVCs. He was evaluated by cardiology who recommended echocardiogram and stress testing as well as heparin drip, Plavix, aspirin, high-intensity statin, beta marylou. Patient will be discharged with new prescriptions for high-intensity statin and metoprolol. At the time of this note, stress testing is pending. - Time Spent with Patient Total time spent providing and/or coordinating discharge services: Greater than 30 minutes - Constitutional Vitals: Temp Pulse Resp BP Pulse Ox 97.9 F 81 16 131/68 94 04/05/17 07:18 04/05/17 07:18 04/05/17 07:18 04/05/17 07:18 04/05/17 07:18 General appearance: Present: A&O X 3, no acute distress - Respiratory Respiratory exam: Present: CTAB. Absent: accessory muscle use, rales, rhonchi, wheezes - Cardiovascular Cardiovascular exam: Present: RRR, +S1, +S2. Absent: diastolic murmur, gallop, rubs, systolic murmur - GI/Abdominal GI/Abdominal exam: Present: normal bowel sounds, soft, no peritoneal signs. Absent: distended, tenderness - Extremities Exam Extremities exam: Present: pedal edema, warm, radial pulses palpable and symmetrical. Absent: calf tenderness, cyanotic - Neurological Exam Neurological exam: Present: altered, oriented X3, no focal deficits <Amor Reynolds - Last Filed: 04/07/17 17:22> Date of Encounter: 04/05/17 Procedures/tests Complete & Pending: Procedures Performed prior 72 hours Category Date Time Status NM nena perf SPECT multi [NM] Routine Exams 04/05/17 09:49 Taken SP pharm nuclear stress Routine Y 04/05/17 09:49 Completed Date of admission: 04/04/17 07:58 Primary care physician: PCP NONE Consults: 04/04/17 09:06 Consult to Nutrition [CONS] Routine Comment: Consulting Provider: NUTRITION Reason for Dietary Consult: MST Score 04/04/17 09:20 Consult to Cardiology [CONS] Routine Comment: Consulting Provider: Cardiology Pedro Reason for Consult: chest pain Time Notified: 09:30 Call Completed: Yes 04/04/17 09:21 Consult to Nephrology [CONS] Routine Consulting Provider: [facility] Randolph SEBASTIAN Reason for Consult: HD management Time Notified: 09:30 Call Completed: Yes 04/05/17 15:00 Consult to Dialysis [CONS] ONCE Hospital course: Mr. Del Cid is a 81 year old male - Time Spent with Patient Total time spent providing and/or coordinating discharge services: - Constitutional Vitals: Temp Pulse Resp BP Pulse Ox 97.7 F 71 16 131/76 98 04/05/17 23:10 04/05/17 16:08 04/05/17 23:10 04/05/17 23:10 04/05/17 16:08 - Attending Attestation I conducted a face to face diagnostic evaluation of this patient and my medical decision-making was reviewed with the Resident Physician, Dr Jeet Acevedo. I agree with the documented findings, disposition and treatment plan as described except to the extent set forth below: Patient's chest pain has resolved. On exam reveals regular S1 and S2 with no murmurs. Stress test was performed showed very mild apical perfusion defect. Patient was cleared by cardiology for discharge home. He will be discharged with close follow-up with PCP and cardiology.
--- NOTE | 2017-04-05 16:35 | Event Note ---
Date of Encounter: 04/05/17 Time of Encounter: 16:00 - Cardiology Event Note Patient seen with , Discussed low risk abnormal stress findings with patient and son. Patient with known severe LAD disease, not amendable to PCI. Encouraged patient to walk in halls and to see if he had any symptoms. Patient ambulated without chest pain, chest pressure, or shortness of breath. Patient can be discharged from cardiac standpoint. Patient has follow up with on 05/02/16.
[2017-04-05 23:23] VITALS: BP 131/76
== END 2017-04-06 00:20 | disposition home or self-care (01) ==
LOC: 2ANU 06:17 → EMEROO 06:17 → 2ANU 08:35
PROVIDERS: ADMIT Hospitalist; ATTEND Internal Medicine

== ENCOUNTER 2019-12-31 11:36 | Observation (INO) ==
[2019-12-31] MEDS ORDERED: 0.9 % Sodium Chloride 500 ML IVC ONE (11:47)
[2019-12-31 12:17] LABS: Hematocrit 28.4 % (37.5-50.1); Hemoglobin 8.9 g/dL (12.9-16.9); Mean Corpuscular HGB Conc 31.3 g/dL (31.6-35.5); Mean Corpuscular Hemoglobin 33.2 pg (28.0-33.3); Mean Platelet Volume 9.2 fL (9.4-12.4); Platelet Count 172 K/mcL (140-400); Red Blood Count 2.68 M/mcL (4.19-5.50); Red Cell Distribution Width 15.4 % (11.5-14.5); White Blood Count 6.4 K/mcL (4.3-11.1)
[2019-12-31 12:22] LABS: INR 2.9; Prothrombin Time 33.3 Seconds (9.4-12.1)
[2019-12-31 12:35] LABS: Albumin 3.5 g/dL (3.5-5.7); Albumin/Globulin Ratio 1.2 (1.1-2.2); Bilirubin,Direct 0.1 mg/dL (0.0-0.2); Bilirubin,Indirect 0.4 mg/dL (0.0-1.0); Bilirubin,Total 0.5 mg/dL (0.3-1.0); Calcium 8.9 mg/dL (8.6-10.3); Globulin 2.9 g/dL (2.4-3.5); Potassium 4.1 mEq/L (3.5-5.1); Total Protein 6.4 g/dL (6.4-8.9)
[2019-12-31] MEDS ORDERED: Naloxone 0.4 MG/ML INJ IVP PRN (13:47)
[2019-12-31] MEDS ORDERED: Warfarin perPT PO PRN (18:00)
[2019-12-31] MEDS ORDERED: Nitroglycerin 0.4 MG TAB.SUBL SL PRN (18:49)
[2019-12-31] MEDS: ISOSORBIDE MONONITRATE 10 MG PO SCH (20:10)
[2020-01-01 04:33] LABS: Basophils % 0.6 %; Eosinophils # 0.1 K/mcL (0.0-0.6); Hemoglobin 9.3 g/dL (12.9-16.9); Immature Granulocytes % 0.1 % (0-4); Lymphocytes # 1.9 K/mcL (0.6-4.6); Lymphocytes % 27.4 %; Mean Corpuscular HGB Conc 32.1 g/dL (31.6-35.5); Mean Corpuscular Hemoglobin 34.1 pg (28.0-33.3); Mean Corpuscular Volume 106.2 fL (83.0-100.0); Mean Platelet Volume 9.5 fL (9.4-12.4); Monocytes # 0.5 K/mcL (0.0-1.3); Monocytes % 7.6 %; Neutrophils # 4.3 K/mcL (1.6-8.9); Platelet Count 181 K/mcL (140-400); Red Blood Count 2.73 M/mcL (4.19-5.50); Red Cell Distribution Width 15.4 % (11.5-14.5); Segmented Neutrophils % 62.3 %; White Blood Count 6.9 K/mcL (4.3-11.1)
[2020-01-01 04:35] LABS: INR 3.2; Prothrombin Time 36.2 Seconds (9.4-12.1)
[2020-01-01 04:57] LABS: Calcium 8.9 mg/dL (8.6-10.3); Potassium 4.1 mEq/L (3.5-5.1)
[2020-01-01 05:17] LABS: Folate > 22.3 ng/mL (3.0-16.0); Vitamin B12 598 pg/mL (250-1100)
[2020-01-01] MEDS: ISOSORBIDE MONONITRATE 10 MG PO SCH (07:49)
[2020-01-01] MEDS: Calcium Acetate 667 MG CAPSULE PO SCH ×2 (07:49→13:04)
[2020-01-01] MEDS ORDERED: 0.9 % Sodium Chloride 250 ML IVC PRN (08:10)
[2020-01-01] MEDS ORDERED: *HR* Heparin 10,000 UNIT/10 ML VIAL IV PRN (08:10)
[2020-01-01 08:13] LABS: Hepatitis B Surface Antibody < 3.10 mIU/mL
[2020-01-01] MEDS ORDERED: 0.9 % Sodium Chloride 1,000 ML PRIME SCH (08:15)
[2020-01-01 08:24] LABS: Hepatitis B Surface Antigen Nonreactive (Nonreactive)
[2020-01-01] MEDS ORDERED: Renal Vitamin 1 CAP CAPSULE PO SCH (09:00)
[2020-01-01 13:43] VITALS: BP 133/88
[2020-01-01] MEDS ORDERED: *HR* Warfarin 2 MG TABLET PO ONE (18:00)
[2020-01-01] MEDS ORDERED: Metoprolol XL (24 HR) Succ 25 MG TAB.ER.24H PO SCH (21:00)
[2020-01-02] MEDS ORDERED: Metoprolol XL (24 HR) Succ 25 MG TAB.ER.24H PO SCH (09:00)
== END 2020-01-01 17:04 | disposition other institution (70) ==
LOC: EMEROOARM 11:36 → 2ANU 11:36
PROVIDERS: ADMIT Internal Medicine; ATTEND Internal Medicine

== ENCOUNTER 2020-10-24 18:25 | Observation (INO) ==
[2020-10-24 19:55] LABS: Basophils % 0.4 %; Eosinophils # 0.1 K/mcL (0.0-0.6); Eosinophils % 1.4 %; Hemoglobin 6.9 g/dL (12.9-16.9); Immature Granulocytes % 0.4 % (0-4); Lymphocytes % 19.5 %; Mean Corpuscular Hemoglobin 32.4 pg (28.0-33.3); Mean Platelet Volume 9.2 fL (9.4-12.4); Monocytes # 0.5 K/mcL (0.0-1.3); Monocytes % 9.9 %; Neutrophils # 3.4 K/mcL (1.6-8.9); Platelet Count 225 K/mcL (140-400); Red Blood Count 2.13 M/mcL (4.19-5.50); Red Cell Distribution Width 18.6 % (11.5-14.5); Segmented Neutrophils % 68.4 %
[2020-10-24 20:12] LABS: Calcium 8.6 mg/dL (8.6-10.3)
[2020-10-24 20:35] LABS: Troponin I 0.05 ng/mL (< 0.04)
[2020-10-24] MEDS ORDERED: 0.9 % Sodium Chloride 250 ML ONE (22:28)
[2020-10-24] MEDS ORDERED: Naloxone 0.4 MG/ML INJ IVP PRN (22:46)
[2020-10-24] MEDS ORDERED: Ondansetron 4 MG/2 ML VIAL IVP PRN (22:46)
[2020-10-24] MEDS ORDERED: Melatonin 3 MG TABLET PO PRN (22:46)
[2020-10-24] MEDS ORDERED: Dextrose Gel 15 GM/37.5 ML TUBE PO PRN ×2 (23:37)
[2020-10-24] MEDS ORDERED: *HR* Dextrose 50 % in Water (Vial) 50 ML VIAL IVP PRN (23:37)
[2020-10-24] MEDS ORDERED: D5% in Water 1,000 ML IVC PRN (23:37)
[2020-10-25 07:33] LABS: Basophils % 0.6 %; Eosinophils # 0.1 K/mcL (0.0-0.6); Eosinophils % 2.3 %; Hematocrit 27.4 % (37.5-50.1); Hemoglobin 8.5 g/dL (12.9-16.9); Immature Granulocytes % 0.4 % (0-4); Lymphocytes # 1.1 K/mcL (0.6-4.6); Lymphocytes % 20.5 %; Mean Corpuscular Hemoglobin 32.4 pg (28.0-33.3); Mean Corpuscular Volume 104.6 fL (83.0-100.0); Mean Platelet Volume 9.1 fL (9.4-12.4); Monocytes # 0.5 K/mcL (0.0-1.3); Monocytes % 8.9 %; Neutrophils # 3.5 K/mcL (1.6-8.9); Platelet Count 221 K/mcL (140-400); Red Blood Count 2.62 M/mcL (4.19-5.50); Segmented Neutrophils % 67.3 %; White Blood Count 5.3 K/mcL (4.3-11.1)
[2020-10-25 07:55] LABS: Calcium 8.2 mg/dL (8.6-10.3); Magnesium 1.7 mg/dL (1.6-2.6); Phosphorous 2.9 mg/dL (2.7-4.5); Potassium 4.3 mEq/L (3.5-5.1)
[2020-10-25] MEDS: Insulin LISPRO 300 UNITS/3 ML VIAL SUBQ SCH ×4 (08:24→20:04)
[2020-10-25] MEDS: Calcium Acetate 667 MG CAPSULE PO SCH ×3 (08:49→17:39)
[2020-10-25] MEDS: Renal Vitamin 1 CAP CAPSULE PO SCH (08:49)
[2020-10-25 16:58] LABS: Hematocrit 28.5 % (37.5-50.1); Hemoglobin 8.8 g/dL (12.9-16.9)
[2020-10-25 17:12] LABS: INR 1.7; Prothrombin Time 19.1 Seconds (9.4-12.1)
[2020-10-26 06:26] LABS: Basophils % 0.3 %; Eosinophils # 0.1 K/mcL (0.0-0.6); Eosinophils % 1.7 %; Hematocrit 25.9 % (37.5-50.1); Hemoglobin 8.4 g/dL (12.9-16.9); Immature Granulocytes % 0.2 % (0-4); Lymphocytes # 1.2 K/mcL (0.6-4.6); Lymphocytes % 19.6 %; Mean Corpuscular HGB Conc 32.4 g/dL (31.6-35.5); Mean Corpuscular Hemoglobin 33.3 pg (28.0-33.3); Mean Corpuscular Volume 102.8 fL (83.0-100.0); Mean Platelet Volume 8.8 fL (9.4-12.4); Monocytes # 0.5 K/mcL (0.0-1.3); Neutrophils # 4.1 K/mcL (1.6-8.9); Platelet Count 190 K/mcL (140-400); Red Blood Count 2.52 M/mcL (4.19-5.50); Red Cell Distribution Width 19.2 % (11.5-14.5); Segmented Neutrophils % 70.2 %; White Blood Count 5.9 K/mcL (4.3-11.1)
[2020-10-26] MEDS ORDERED: 0.9 % Sodium Chloride 250 ML IVC PRN (06:48)
[2020-10-26 06:54] LABS: Calcium 8.7 mg/dL (8.6-10.3); Magnesium 1.8 mg/dL (1.6-2.6); Potassium 4.8 mEq/L (3.5-5.1); Troponin I 0.04 ng/mL (< 0.04)
[2020-10-26] MEDS ORDERED: 0.9 % Sodium Chloride 1,000 ML PRIME SCH (07:00)
[2020-10-26] MEDS: Insulin LISPRO 300 UNITS/3 ML VIAL SUBQ SCH ×4 (07:37→19:26)
[2020-10-26 07:39] LABS: Hepatitis B Surface Antibody < 3.10 mIU/mL
[2020-10-26 07:50] LABS: Hepatitis B Surface Antigen Nonreactive (Nonreactive)
[2020-10-26] MEDS: Renal Vitamin 1 CAP CAPSULE PO SCH (07:51)
[2020-10-26] MEDS: Calcium Acetate 667 MG CAPSULE PO SCH ×3 (07:51→17:14)
[2020-10-26] MEDS: Furosemide 40 MG TABLET PO SCH (13:44)
[2020-10-26] MEDS: Metoprolol XL (24 HR) Succ 25 MG TAB.ER.24H PO SCH (13:44)
[2020-10-26 14:44] LABS: INR 1.4; Prothrombin Time 16.5 Seconds (9.4-12.1)
[2020-10-26] MEDS ORDERED: Warfarin perPT PO PRN (18:00)
[2020-10-26] MEDS ORDERED: *HR* Warfarin 3 MG TABLET PO ONE (18:00)
[2020-10-27 06:00] LABS: Hematocrit 26.6 % (37.5-50.1); Hemoglobin 8.6 g/dL (12.9-16.9); Mean Corpuscular HGB Conc 32.3 g/dL (31.6-35.5); Mean Corpuscular Hemoglobin 33.3 pg (28.0-33.3); Mean Corpuscular Volume 103.1 fL (83.0-100.0); Mean Platelet Volume 9.2 fL (9.4-12.4); Platelet Count 167 K/mcL (140-400); Red Blood Count 2.58 M/mcL (4.19-5.50); Red Cell Distribution Width 18.6 % (11.5-14.5)
[2020-10-27 06:08] LABS: INR 1.4; Prothrombin Time 16.2 Seconds (9.4-12.1)
[2020-10-27 06:11] LABS: Calcium 8.5 mg/dL (8.6-10.3); Potassium 4.3 mEq/L (3.5-5.1)
[2020-10-27] MEDS: Insulin LISPRO 300 UNITS/3 ML VIAL SUBQ SCH ×4 (07:54→20:02)
[2020-10-27] MEDS: Calcium Acetate 667 MG CAPSULE PO SCH ×3 (08:58→17:51)
[2020-10-27] MEDS: Renal Vitamin 1 CAP CAPSULE PO SCH (08:58)
[2020-10-27] MEDS: Metoprolol XL (24 HR) Succ 25 MG TAB.ER.24H PO SCH (08:58)
[2020-10-27] MEDS: Furosemide 40 MG TABLET PO SCH (08:59)
[2020-10-27] MEDS ORDERED: *HR* Warfarin 3 MG TABLET PO ONE (18:00)
[2020-10-28 01:56] LABS: Hematocrit 25.6 % (37.5-50.1); Hemoglobin 8.3 g/dL (12.9-16.9); Mean Corpuscular HGB Conc 32.4 g/dL (31.6-35.5); Mean Corpuscular Hemoglobin 33.3 pg (28.0-33.3); Mean Corpuscular Volume 102.8 fL (83.0-100.0); Mean Platelet Volume 9.2 fL (9.4-12.4); Platelet Count 172 K/mcL (140-400); Red Blood Count 2.49 M/mcL (4.19-5.50); White Blood Count 5.2 K/mcL (4.3-11.1)
[2020-10-28 02:03] LABS: INR 1.5; Prothrombin Time 16.9 Seconds (9.4-12.1)
[2020-10-28 02:16] LABS: Calcium 8.6 mg/dL (8.6-10.3); Potassium 5.1 mEq/L (3.5-5.1)
[2020-10-28] MEDS ORDERED: 0.9 % Sodium Chloride 250 ML IVC PRN (06:56)
[2020-10-28] MEDS: Renal Vitamin 1 CAP CAPSULE PO SCH (07:38)
[2020-10-28] MEDS: Calcium Acetate 667 MG CAPSULE PO SCH ×2 (07:38→16:41)
[2020-10-28] MEDS: Furosemide 40 MG TABLET PO SCH (07:38)
[2020-10-28] MEDS: Metoprolol XL (24 HR) Succ 25 MG TAB.ER.24H PO SCH (07:38)
[2020-10-28] MEDS: Insulin LISPRO 300 UNITS/3 ML VIAL SUBQ SCH ×3 (07:39→16:41)
[2020-10-28 12:58] VITALS: BP 112/67
[2020-10-28] MEDS ORDERED: *HR* Warfarin 5 MG TABLET PO ONE (18:00)
== END 2020-10-28 17:19 | disposition home or self-care (01) ==
LOC: CDU 18:25 → EMEROOARM 18:25 → SUATTDRO 22:55 → CDU 23:36 → 3BNU 10-25 18:44
PROVIDERS: ADMIT Family Medicine; ATTEND Nurse Practitioner

== ENCOUNTER 2020-11-15 17:30 | Observation (INO) ==
[2020-11-15] MEDS ORDERED: Pantoprazole 80 MG in 0.9 % Sodium Chloride 50 ML IVPB ONE (18:52)
[2020-11-15 19:59] LABS: Basophils % 0.3 %; Platelet Count 200 K/mcL (140-400)
[2020-11-15 20:01] LABS: Eosinophils % 0.3 %; Hematocrit 18.2 % (37.5-50.1); Immature Granulocytes % 0.6 % (0-4); Lymphocytes # 1.3 K/mcL (0.6-4.6); Lymphocytes % 16.6 %; Mean Corpuscular HGB Conc 31.3 g/dL (31.6-35.5); Mean Corpuscular Hemoglobin 32.9 pg (28.0-33.3); Mean Corpuscular Volume 105.2 fL (83.0-100.0); Mean Platelet Volume 9.1 fL (9.4-12.4); Monocytes # 0.6 K/mcL (0.0-1.3); Monocytes % 8.1 %; Neutrophils # 5.9 K/mcL (1.6-8.9); Nucleated Red Blood Cells 0.3 /100 WBC (0); Red Blood Count 1.73 M/mcL (4.19-5.50); Red Cell Distribution Width 18.2 % (11.5-14.5); Segmented Neutrophils % 74.1 %; White Blood Count 7.9 K/mcL (4.3-11.1)
[2020-11-15 20:10] LABS: INR 2.7
[2020-11-15 20:13] LABS: Activated Partial Thrombo Time 38.3 Seconds (26.0-36.0)
[2020-11-15 20:21] LABS: Albumin 3.3 g/dL (3.5-5.7); Albumin/Globulin Ratio 1.3 (1.1-2.2); Bilirubin,Total 0.3 mg/dL (0.3-1.0); Calcium 8.8 mg/dL (8.6-10.3); Globulin 2.6 g/dL (2.4-3.5); Magnesium 1.8 mg/dL (1.6-2.6); Potassium 5.4 mEq/L (3.5-5.1); Total Protein 5.9 g/dL (6.4-8.9)
[2020-11-15 20:26] LABS: Hemoglobin 5.7 g/dL (12.9-16.9)
[2020-11-15 20:27] LABS: Troponin I 0.04 ng/mL (< 0.04)
[2020-11-15 20:28] LABS: Anisocytosis 1+ (Not Present); Platelet Estimate Normal (Normal)
[2020-11-15] MEDS ORDERED: Melatonin 3 MG TABLET PO PRN (22:34)
[2020-11-15] MEDS ORDERED: Naloxone 0.4 MG/ML INJ IVP PRN (22:34)
[2020-11-15] MEDS ORDERED: Acetaminophen 325 MG TABLET PO PRN (22:34)
[2020-11-15] MEDS ORDERED: Ondansetron 4 MG/2 ML VIAL IVP PRN (22:34)
[2020-11-15] MEDS ORDERED: D5% in Water 1,000 ML IVC PRN (23:20)
[2020-11-15] MEDS ORDERED: *HR* Dextrose 50 % in Water (Vial) 50 ML VIAL IVP PRN (23:20)
[2020-11-15] MEDS ORDERED: Dextrose Gel 15 GM/37.5 ML TUBE PO PRN ×2 (23:20)
[2020-11-16] MEDS ORDERED: 0.9 % Sodium Chloride 250 ML ONE (00:56)
[2020-11-16] MEDS: 0.9 % Sodium Chloride 250 ML ONE ×2 (01:18→03:01)
[2020-11-16] MEDS: 0.9 % Sodium Chloride 1,000 ML IVC SCH ×2 (03:02→23:36)
[2020-11-16] MEDS ORDERED: Pantoprazole 40 MG VIAL IVP SCH (06:00)
[2020-11-16 07:07] LABS: Basophils % 0.5 %; Eosinophils # 0.1 K/mcL (0.0-0.6); Eosinophils % 0.9 %; Hemoglobin 7.1 g/dL (12.9-16.9); Immature Granulocytes % 0.5 % (0-4); Lymphocytes # 1.5 K/mcL (0.6-4.6); Mean Corpuscular HGB Conc 32.3 g/dL (31.6-35.5); Mean Corpuscular Volume 96.1 fL (83.0-100.0); Mean Platelet Volume 9.4 fL (9.4-12.4); Monocytes # 0.5 K/mcL (0.0-1.3); Monocytes % 7.6 %; Neutrophils # 4.3 K/mcL (1.6-8.9); Nucleated Red Blood Cells 0.3 /100 WBC (0); Platelet Count 180 K/mcL (140-400); Red Blood Count 2.29 M/mcL (4.19-5.50); Red Cell Distribution Width 21.8 % (11.5-14.5); Segmented Neutrophils % 66.5 %; White Blood Count 6.4 K/mcL (4.3-11.1)
[2020-11-16 07:23] LABS: Calcium 8.3 mg/dL (8.6-10.3); Potassium 4.7 mEq/L (3.5-5.1)
[2020-11-16] MEDS ORDERED: 0.9 % Sodium Chloride 250 ML IVC PRN (07:57)
[2020-11-16] MEDS ORDERED: *HR* Heparin 10,000 UNIT/10 ML VIAL IV PRN (07:57)
[2020-11-16] MEDS ORDERED: 0.9 % Sodium Chloride 1,000 ML PRIME SCH (08:00)
[2020-11-16] MEDS: Pantoprazole 40 MG in 0.9 % Sodium Chloride Mini Bag 100 ML IVC SCH ×3 (13:06→23:36)
[2020-11-16] MEDS ORDERED: *HR* Propofol 200 MG/20 ML VIAL IVP ONE (14:25)
[2020-11-16] MEDS ORDERED: Lidocaine -MPF 2% 5 ML VIAL ONE (14:25)
[2020-11-16] MEDS ORDERED: *HR* Etomidate 40 MG/20 ML VIAL IVP ONE (14:25)
[2020-11-16] MEDS: Metoprolol XL (24 HR) Succ 25 MG TAB.ER.24H PO SCH (20:37)
[2020-11-16 22:36] LABS: Hematocrit 31.3 % (37.5-50.1); Hemoglobin 9.7 g/dL (12.9-16.9); Mean Corpuscular Hemoglobin 30.9 pg (28.0-33.3); Mean Corpuscular Volume 99.7 fL (83.0-100.0); Mean Platelet Volume 9.2 fL (9.4-12.4); Platelet Count 232 K/mcL (140-400); Red Blood Count 3.14 M/mcL (4.19-5.50); Red Cell Distribution Width 22.6 % (11.5-14.5); White Blood Count 9.2 K/mcL (4.3-11.1)
[2020-11-16 22:42] LABS: INR 1.9; Prothrombin Time 21.9 Seconds (9.4-12.1)
[2020-11-17 05:49] LABS: Transferrin 169 mg/dL (203-362)
[2020-11-17] MEDS: Pantoprazole 40 MG in 0.9 % Sodium Chloride Mini Bag 100 ML IVC SCH ×2 (05:50→10:38)
[2020-11-17 05:54] LABS: % Iron Saturation 12 % (20-55); Iron 28 mcg/dL (65-175)
[2020-11-17] MEDS ORDERED: Furosemide 40 MG TABLET PO SCH (09:00)
[2020-11-17] MEDS ORDERED: Cholecalciferol (D-3) 1,000 UNIT (25MCG) TABLET PO SCH (09:00)
[2020-11-17] MEDS: Metoprolol XL (24 HR) Succ 25 MG TAB.ER.24H PO SCH (10:36)
[2020-11-17] MEDS ORDERED: Simethicone 40 MG/0.6 ML MLS IR ONE (14:29)
[2020-11-17 14:35] VITALS: BP 135/71; PULSE 92; TEMP 98; O2SAT 97
[2020-11-17] MEDS ORDERED: Lidocaine -MPF 2% 5 ML VIAL SQ ONE (19:09)
[2020-11-17] MEDS ORDERED: *HR* Propofol 500 MG/50 ML BOTTLE IVP ONE (19:09)
[2020-11-17] MEDS ORDERED: *HR* Phenylephrine 10 MG/ML VIAL IVC ONE (19:09)
== END 2020-11-17 19:10 | disposition home health service (06) ==
LOC: 2NENU 17:30 → EMEROOARM 17:30 → SUATTDRO 23:03 → 2NENU 23:59
PROVIDERS: ADMIT Family Medicine; ATTEND Internal Medicine

== ENCOUNTER 2020-12-28 13:44 | Observation (INO) ==
[2020-12-28] MEDS ORDERED: *HR* FentaNYL (PF) 100 MCG/2 ML VIAL IVP ONE (16:13)
[2020-12-28] MEDS ORDERED: Aspirin 81 MG TAB.CHEW PO STA (16:15)
[2020-12-28 16:48] LABS: Basophils % 0.7 %; Eosinophils # 0.1 K/mcL (0.0-0.6); Eosinophils % 1.2 %; Hematocrit 38.1 % (37.5-50.1); Immature Granulocytes % 0.2 % (0-4); Lymphocytes # 0.8 K/mcL (0.6-4.6); Lymphocytes % 13.3 %; Mean Corpuscular HGB Conc 31.5 g/dL (31.6-35.5); Mean Corpuscular Hemoglobin 31.7 pg (28.0-33.3); Mean Corpuscular Volume 100.5 fL (83.0-100.0); Mean Platelet Volume 8.9 fL (9.4-12.4); Monocytes # 0.6 K/mcL (0.0-1.3); Monocytes % 10.1 %; Neutrophils # 4.4 K/mcL (1.6-8.9); Platelet Count 181 K/mcL (140-400); Red Blood Count 3.79 M/mcL (4.19-5.50); Red Cell Distribution Width 16.1 % (11.5-14.5); Segmented Neutrophils % 74.5 %; White Blood Count 5.9 K/mcL (4.3-11.1)
[2020-12-28 16:59] LABS: INR 1.1; Prothrombin Time 12.5 Seconds (9.4-12.1)
[2020-12-28 17:02] LABS: Activated Partial Thrombo Time 37.1 Seconds (26.0-36.0)
[2020-12-28 17:12] LABS: Calcium 8.9 mg/dL (8.6-10.3); Potassium 4.7 mEq/L (3.5-5.1)
[2020-12-28 17:22] LABS: Troponin I 0.04 ng/mL (< 0.04)
[2020-12-28] MEDS ORDERED: Ondansetron 4 MG/2 ML VIAL IVP PRN (17:45)
[2020-12-28] MEDS ORDERED: Naloxone 0.4 MG/ML INJ IVP PRN (17:45)
[2020-12-28] MEDS ORDERED: Acetaminophen 325 MG TABLET PO PRN (17:45)
[2020-12-28] MEDS ORDERED: Perflutren Lipid Microsphere 1.3 ML in 0.9 % Sodium Chloride 8.7 ML IVP PRN (17:46)
[2020-12-28] MEDS ORDERED: Nitroglycerin 0.4 MG TAB.SUBL SL PRN (17:52)
[2020-12-28] MEDS: Metoprolol XL (24 HR) Succ 25 MG TAB.ER.24H PO SCH (20:48)
[2020-12-28] MEDS: *HR* Heparin 5,000 UNIT/ML VIAL SQ SCH (20:49)
[2020-12-29 02:55] LABS: Basophils % 0.3 %; Eosinophils # 0.1 K/mcL (0.0-0.6); Eosinophils % 1.3 %; Hematocrit 37.1 % (37.5-50.1); Hemoglobin 11.7 g/dL (12.9-16.9); Immature Granulocytes % 0.3 % (0-4); Lymphocytes # 0.8 K/mcL (0.6-4.6); Mean Corpuscular HGB Conc 31.5 g/dL (31.6-35.5); Mean Corpuscular Hemoglobin 31.6 pg (28.0-33.3); Mean Corpuscular Volume 100.3 fL (83.0-100.0); Mean Platelet Volume 9.2 fL (9.4-12.4); Monocytes # 0.6 K/mcL (0.0-1.3); Monocytes % 9.8 %; Neutrophils # 4.4 K/mcL (1.6-8.9); Platelet Count 177 K/mcL (140-400); Red Cell Distribution Width 16.2 % (11.5-14.5); Segmented Neutrophils % 74.3 %; White Blood Count 5.9 K/mcL (4.3-11.1)
[2020-12-29 03:11] LABS: INR 1.1; Prothrombin Time 12.7 Seconds (9.4-12.1)
[2020-12-29 03:19] LABS: Chol/HDL Ratio 1.7 (0-4.9)
[2020-12-29 03:23] LABS: Calcium 8.5 mg/dL (8.6-10.3); Magnesium 1.8 mg/dL (1.6-2.6); Potassium 4.5 mEq/L (3.5-5.1)
[2020-12-29 03:37] LABS: Troponin I 0.05 ng/mL (< 0.04)
[2020-12-29 04:50] LABS: Estimated Average Glucose 85 mg/dl; Hemoglobin A1C 4.6 %
[2020-12-29] MEDS: *HR* Heparin 5,000 UNIT/ML VIAL SQ SCH ×2 (05:36→16:50)
[2020-12-29] MEDS ORDERED: Regadenoson 0.4 MG/5 ML SYRINGE IVP ONE ×2 (06:21→13:17)
[2020-12-29] MEDS: Metoprolol XL (24 HR) Succ 25 MG TAB.ER.24H PO SCH (07:39)
[2020-12-29] MEDS ORDERED: Metoprolol XL (24 HR) Succ 25 MG TAB.ER.24H PO ONE (10:18)
[2020-12-29] MEDS ORDERED: *HR* Metoprolol 5 MG/5 ML VIAL IVP ONE (12:01)
[2020-12-29] MEDS ORDERED: Metoprolol XL (24 HR) Succ 25 MG TAB.ER.24H PO SCH (21:00)
[2020-12-30 03:20] LABS: Basophils % 0.4 %; Eosinophils # 0.1 K/mcL (0.0-0.6); Eosinophils % 1.3 %; Hematocrit 33.8 % (37.5-50.1); Hemoglobin 11.1 g/dL (12.9-16.9); Immature Granulocytes % 0.3 % (0-4); Lymphocytes # 1.3 K/mcL (0.6-4.6); Mean Corpuscular HGB Conc 32.8 g/dL (31.6-35.5); Mean Corpuscular Hemoglobin 32.5 pg (28.0-33.3); Mean Corpuscular Volume 98.8 fL (83.0-100.0); Mean Platelet Volume 9.9 fL (9.4-12.4); Monocytes # 0.5 K/mcL (0.0-1.3); Neutrophils # 4.8 K/mcL (1.6-8.9); Platelet Count 172 K/mcL (140-400); Red Blood Count 3.42 M/mcL (4.19-5.50); Red Cell Distribution Width 16.2 % (11.5-14.5); White Blood Count 6.7 K/mcL (4.3-11.1)
[2020-12-30 03:37] LABS: Calcium 9.1 mg/dL (8.6-10.3); Potassium 4.6 mEq/L (3.5-5.1)
[2020-12-30] MEDS: *HR* Heparin 5,000 UNIT/ML VIAL SQ SCH ×2 (05:25→16:20)
[2020-12-30] MEDS ORDERED: 0.9 % Sodium Chloride 1,000 ML ONE (07:02)
[2020-12-30] MEDS ORDERED: 0.9 % Sodium Chloride 250 ML IVC PRN (07:12)
[2020-12-30] MEDS ORDERED: 0.9 % Sodium Chloride 1,000 ML PRIME SCH (07:15)
[2020-12-30] MEDS: Aspirin Enteric Coated 81 MG Tablet PO SCH (08:59)
[2020-12-30 10:58] LABS: Hepatitis B Surface Antibody < 3.10 mIU/mL
[2020-12-30 11:09] LABS: Hepatitis B Surface Antigen Nonreactive (Nonreactive)
[2020-12-30] MEDS: Metoprolol XL (24 HR) Succ 25 MG TAB.ER.24H PO SCH ×2 (13:14→20:03)
[2020-12-31] MEDS ORDERED: Ondansetron ODT 4 MG TAB.RAPDIS SL PRN (01:04)
[2020-12-31] MEDS: *HR* Heparin 5,000 UNIT/ML VIAL SQ SCH (05:54)
[2020-12-31] MEDS: Metoprolol XL (24 HR) Succ 25 MG TAB.ER.24H PO SCH (09:03)
[2020-12-31] MEDS: Aspirin Enteric Coated 81 MG Tablet PO SCH (09:08)
[2020-12-31 09:14] VITALS: PULSE 92; TEMP 97.7; O2SAT 97
[2020-12-31 09:15] VITALS: BP 86/55
== END 2020-12-31 11:36 | disposition home or self-care (01) ==
LOC: EMEROOARM 13:44 → 2ANU 13:44 → SUATTDRO 18:10 → 2ANU 19:54
PROVIDERS: ADMIT Internal Medicine; ATTEND Internal Medicine

== ENCOUNTER 2021-03-08 12:53 | Observation (INO) ==
[2021-03-08] MEDS ORDERED: 0.9 % Sodium Chloride 500 ML IV ONE (13:56)
[2021-03-08 14:32] LABS: Basophils % 0.3 %; Eosinophils % 0.1 %; Hematocrit 34.2 % (37.5-50.1); Hemoglobin 10.7 g/dL (12.9-16.9); Immature Granulocytes % 0.4 % (0-4); Lymphocytes # 0.5 K/mcL (0.6-4.6); Lymphocytes % 6.7 %; Mean Corpuscular HGB Conc 31.3 g/dL (31.6-35.5); Mean Corpuscular Hemoglobin 32.8 pg (28.0-33.3); Mean Corpuscular Volume 104.9 fL (83.0-100.0); Mean Platelet Volume 8.7 fL (9.4-12.4); Monocytes # 0.7 K/mcL (0.0-1.3); Monocytes % 8.7 %; Neutrophils # 6.6 K/mcL (1.6-8.9); Platelet Count 275 K/mcL (140-400); Red Blood Count 3.26 M/mcL (4.19-5.50); Red Cell Distribution Width 15.9 % (11.5-14.5); Segmented Neutrophils % 83.8 %; White Blood Count 7.9 K/mcL (4.3-11.1)
[2021-03-08 15:05] LABS: Albumin 3.1 g/dL (3.5-5.7); Albumin/Globulin Ratio 0.8 (1.1-2.2); Bilirubin,Total 0.7 mg/dL (0.3-1.0); Calcium 8.8 mg/dL (8.6-10.3); Total Protein 7.1 g/dL (6.4-8.9); Troponin I 0.06 ng/mL (< 0.04)
[2021-03-08 15:15] LABS: INR 2.2; Prothrombin Time 24.6 Seconds (9.4-12.1)
[2021-03-08 16:00] LABS: Influenza A PCR Negative (Negative); Influenza B PCR Negative (Negative); Resp. Syncytial Virus PCR Negative (Negative); SARS-CoV-2 by PCR (In House) Negative (Negative)
[2021-03-08] MEDS ORDERED: *HR* Metoprolol 5 MG/5 ML VIAL IVP ONE ×2 (16:12→18:26)
[2021-03-08 17:55] LABS: Bilirubin,Urine Negative (Negative); Blood,Urine Trace (Negative); Clarity,Urine Clear (Clear); Color,Urine Light-Yellow (Yellow); Glucose,Urine (UA) 50 mg/dL (Normal); Ketones,Urine Negative (Negative); Leukocyte Esterase,Urine Negative (Negative); Nitrite,Urine Negative (Negative); Protein,Urine 100 mg/dL (Neg-Trace); Specific Gravity,Urine 1.011 (1.010-1.025); Urobilinogen,Urine Normal (Normal); WBC,Urine 0-3 per hpf (0-3)
[2021-03-08] MEDS ORDERED: Ondansetron ODT 4 MG TAB.RAPDIS SL PRN (19:42)
[2021-03-08] MEDS ORDERED: Melatonin 3 MG TABLET PO PRN (19:42)
[2021-03-08] MEDS ORDERED: Naloxone 0.4 MG/ML INJ IVP PRN (19:42)
[2021-03-08] MEDS ORDERED: Acetaminophen 325 MG TABLET PO PRN (19:42)
[2021-03-08] MEDS ORDERED: Dextrose Gel 15 GM/37.5 ML TUBE PO PRN ×2 (21:51)
[2021-03-08] MEDS ORDERED: *HR* Dextrose 50 % in Water (Syg) 50 ML SYRINGE IVP PRN (21:51)
[2021-03-08] MEDS ORDERED: D5% in Water 1,000 ML IVC PRN (21:51)
[2021-03-08] MEDS ORDERED: 0.9 % Sodium Chloride 250 ML IVC ONE (21:58)
[2021-03-08] MEDS: Piperacillin/Tazobactam 3.375 GM in 0.9 % Sodium Chloride Mini Bag 100 ML IVPB SCH (23:01)
[2021-03-09] MEDS ORDERED: Piperacillin/Tazobactam 3.375 GM in 0.9 % Sodium Chloride Mini Bag 100 ML IVPB SCH
[2021-03-09 02:06] LABS: Basophils % 0.2 %; Eosinophils % 0.1 %; Hematocrit 32.6 % (37.5-50.1); Hemoglobin 10.3 g/dL (12.9-16.9); Immature Granulocytes % 0.4 % (0-4); Lymphocytes # 0.7 K/mcL (0.6-4.6); Mean Corpuscular HGB Conc 31.6 g/dL (31.6-35.5); Mean Corpuscular Hemoglobin 32.6 pg (28.0-33.3); Mean Corpuscular Volume 103.2 fL (83.0-100.0); Mean Platelet Volume 8.9 fL (9.4-12.4); Neutrophils # 7.2 K/mcL (1.6-8.9); Platelet Count 258 K/mcL (140-400); Red Blood Count 3.16 M/mcL (4.19-5.50); Red Cell Distribution Width 15.7 % (11.5-14.5); Segmented Neutrophils % 80.3 %; White Blood Count 8.9 K/mcL (4.3-11.1)
[2021-03-09 02:17] LABS: INR 2.7; Prothrombin Time 29.9 Seconds (9.4-12.1)
[2021-03-09 02:26] LABS: Calcium 8.4 mg/dL (8.6-10.3); Magnesium 1.7 mg/dL (1.6-2.6); Potassium 4.9 mEq/L (3.5-5.1)
[2021-03-09 03:09] LABS: Folate > 22.3 ng/mL (3.0-16.0)
[2021-03-09] MEDS ORDERED: Ringers Solution, Lactated 250 ML IVC PRN (03:58)
[2021-03-09 06:00] LABS: Vitamin B12 380 pg/mL (250-1100)
[2021-03-09] MEDS ORDERED: Albumin 25% 25gram/100mL 25 GM/100 ML IV.SOLN IVPB ONE (08:14)
[2021-03-09] MEDS ORDERED: *HR* Heparin 10,000 UNIT/10 ML VIAL IV PRN (08:14)
[2021-03-09] MEDS ORDERED: 0.9 % Sodium Chloride 250 ML IVC PRN (08:14)
[2021-03-09 08:15] LABS: Adenovirus F 40/41 PCR Not detected (Not detect); Astrovirus PCR Not detected (Not detect); C.difficile Toxin A/B Gene PCR Not detected (Not detect); Campylobacter by PCR Not detected (Not detect); Cryptosporidium by PCR Not detected (Not detect); Cyclospora cayetanensis PCR Not detected (Not detect); E. coli O157 by PCR Not detected (Not detect); Entamoeba histolytica PCR Not detected (Not detect); Enteroaggregative E.coli(EAEC) Not detected (Not detect); Enteropathogenic E.coli(EPEC) Not detected (Not detect); Enterotoxigenic E.coli (ETEC) Not detected (Not detect); Giardia lamblia PCR Not detected (Not detect); Norovirus GI/GII PCR Not detected (Not detect); Plesiomonas shigelloides PCR Not detected (Not detect); Rotavirus A PCR Not detected (Not detect); Salmonella PCR Not detected (Not detect); Sapovirus PCR Not detected (Not detect); Shig/EnteroinvasiveE coli EIEC Not detected (Not detect); Shigalike tox-prod E coli STEC Not detected (Not detect); Vibrio PCR Not detected (Not detect); Vibrio cholerae PCR Not detected (Not detect); Yersinia enterocolitica PCR Not detected (Not detect)
[2021-03-09] MEDS ORDERED: 0.9 % Sodium Chloride 1,000 ML PRIME SCH (08:15)
[2021-03-09 09:18] LABS: Hepatitis B Surface Antibody < 3.10 mIU/mL
[2021-03-09] MEDS: Cholecalciferol (D-3) 1,000 UNIT (25MCG) TABLET PO SCH (09:24)
[2021-03-09] MEDS: Metoprolol XL (24 HR) Succ 50 MG TAB.ER.24H PO SCH ×2 (09:24→22:18)
[2021-03-09] MEDS: Renal Vitamin 1 CAP CAPSULE PO SCH (09:24)
[2021-03-09 09:29] LABS: Hepatitis B Surface Antigen Nonreactive (Nonreactive)
[2021-03-09] MEDS: Piperacillin/Tazobactam 3.375 GM in 0.9 % Sodium Chloride Mini Bag 100 ML IVPB SCH ×2 (16:16→17:51)
[2021-03-10 01:55] LABS: Hematocrit 28.5 % (37.5-50.1); Mean Corpuscular HGB Conc 30.5 g/dL (31.6-35.5); Mean Corpuscular Hemoglobin 31.5 pg (28.0-33.3); Mean Corpuscular Volume 103.3 fL (83.0-100.0); Mean Platelet Volume 9.2 fL (9.4-12.4); Platelet Count 219 K/mcL (140-400); Red Blood Count 2.76 M/mcL (4.19-5.50); Red Cell Distribution Width 15.8 % (11.5-14.5); White Blood Count 5.6 K/mcL (4.3-11.1)
[2021-03-10 01:57] LABS: Hemoglobin 8.7 g/dL (12.9-16.9)
[2021-03-10 02:20] LABS: Complement C3 97 mg/dL (87-200)
[2021-03-10 02:21] LABS: Calcium 7.9 mg/dL (8.6-10.3); Potassium 4.1 mEq/L (3.5-5.1)
[2021-03-10] MEDS: Piperacillin/Tazobactam 3.375 GM in 0.9 % Sodium Chloride Mini Bag 100 ML IVPB SCH ×2 (04:29→15:56)
[2021-03-10] MEDS: Calcium Acetate 667 MG CAPSULE PO SCH ×3 (08:07→15:40)
[2021-03-10] MEDS: Renal Vitamin 1 CAP CAPSULE PO SCH (08:07)
[2021-03-10] MEDS: Metoprolol XL (24 HR) Succ 50 MG TAB.ER.24H PO SCH ×3 (08:07→20:38)
[2021-03-10] MEDS: Cholecalciferol (D-3) 1,000 UNIT (25MCG) TABLET PO SCH (08:08)
[2021-03-10] MEDS ORDERED: 0.9 % Sodium Chloride 250 ML IVC PRN (08:21)
[2021-03-10 09:33] LABS: INR 2.5; Prothrombin Time 27.7 Seconds (9.4-12.1)
[2021-03-10] MEDS ORDERED: 0.9 % Sodium Chloride 250 ML IVC ONE (15:34)
[2021-03-10] MEDS ORDERED: Albumin 25% 25gram/100mL 25 GM/100 ML IV.SOLN IVPB ONE (17:39)
[2021-03-10] MEDS ORDERED: Warfarin perPT PO PRN (18:00)
[2021-03-10] MEDS ORDERED: Warfarin 0.5 MG, Warfarin 1 MG PO ONE (18:00)
[2021-03-11 01:08] LABS: Hematocrit 27.7 % (37.5-50.1); Hemoglobin 8.8 g/dL (12.9-16.9); Mean Corpuscular HGB Conc 31.8 g/dL (31.6-35.5); Mean Corpuscular Hemoglobin 32.6 pg (28.0-33.3); Mean Corpuscular Volume 102.6 fL (83.0-100.0); Mean Platelet Volume 9.4 fL (9.4-12.4); Platelet Count 216 K/mcL (140-400); Red Cell Distribution Width 15.8 % (11.5-14.5); White Blood Count 5.3 K/mcL (4.3-11.1)
[2021-03-11 01:16] LABS: INR 2.2; Prothrombin Time 24.2 Seconds (9.4-12.1)
[2021-03-11] MEDS: Piperacillin/Tazobactam 3.375 GM in 0.9 % Sodium Chloride Mini Bag 100 ML IVPB SCH (04:17)
[2021-03-11] MEDS: Calcium Acetate 667 MG CAPSULE PO SCH ×3 (08:16→17:13)
[2021-03-11] MEDS: Cholecalciferol (D-3) 1,000 UNIT (25MCG) TABLET PO SCH (08:16)
[2021-03-11] MEDS: Metoprolol XL (24 HR) Succ 50 MG TAB.ER.24H PO SCH ×2 (08:17→20:18)
[2021-03-11] MEDS: Renal Vitamin 1 CAP CAPSULE PO SCH (08:17)
[2021-03-11] MEDS ORDERED: *HR* Warfarin 3 MG TABLET PO ONE (18:00)
[2021-03-12 05:41] LABS: INR 2.3; Prothrombin Time 25.6 Seconds (9.4-12.1)
[2021-03-12] MEDS: Cholestyramine 4 GM POWD.PACK PO SCH (06:22)
[2021-03-12] MEDS: Renal Vitamin 1 CAP CAPSULE PO SCH (09:03)
[2021-03-12] MEDS: Cholecalciferol (D-3) 1,000 UNIT (25MCG) TABLET PO SCH (09:03)
[2021-03-12] MEDS: Calcium Acetate 667 MG CAPSULE PO SCH ×3 (09:04→16:23)
[2021-03-12] MEDS: Metoprolol XL (24 HR) Succ 50 MG TAB.ER.24H PO SCH ×2 (09:04→20:15)
[2021-03-12 13:50] LABS: Basophils % 0.5 %; Eosinophils # 0.2 K/mcL (0.0-0.6); Eosinophils % 2.5 %; Hematocrit 32.5 % (37.5-50.1); Hemoglobin 10.2 g/dL (12.9-16.9); Immature Granulocytes % 0.5 % (0-4); Lymphocytes # 0.8 K/mcL (0.6-4.6); Lymphocytes % 12.6 %; Mean Corpuscular HGB Conc 31.4 g/dL (31.6-35.5); Mean Corpuscular Hemoglobin 32.2 pg (28.0-33.3); Mean Corpuscular Volume 102.5 fL (83.0-100.0); Mean Platelet Volume 9.3 fL (9.4-12.4); Monocytes # 0.6 K/mcL (0.0-1.3); Monocytes % 9.2 %; Neutrophils # 4.5 K/mcL (1.6-8.9); Platelet Count 260 K/mcL (140-400); Red Blood Count 3.17 M/mcL (4.19-5.50); Red Cell Distribution Width 15.9 % (11.5-14.5); Segmented Neutrophils % 74.7 %
[2021-03-12 14:10] LABS: Calcium 8.1 mg/dL (8.6-10.3); Potassium 4.3 mEq/L (3.5-5.1)
[2021-03-12] MEDS ORDERED: Warfarin 0.5 MG, Warfarin 1 MG PO ONE (18:00)
[2021-03-13 02:07] LABS: Calcium 7.9 mg/dL (8.6-10.3)
[2021-03-13] MEDS: Cholestyramine 4 GM POWD.PACK PO SCH (05:34)
[2021-03-13] MEDS ORDERED: 0.9 % Sodium Chloride 250 ML IVC PRN (07:02)
[2021-03-13] MEDS: Calcium Acetate 667 MG CAPSULE PO SCH ×3 (08:13→16:45)
[2021-03-13] MEDS: Renal Vitamin 1 CAP CAPSULE PO SCH (08:14)
[2021-03-13] MEDS: Cholecalciferol (D-3) 1,000 UNIT (25MCG) TABLET PO SCH (08:14)
[2021-03-13] MEDS: Metoprolol XL (24 HR) Succ 50 MG TAB.ER.24H PO SCH ×2 (08:19→20:24)
[2021-03-13] MEDS ORDERED: *HR* Warfarin 3 MG TABLET PO ONE (18:00)
[2021-03-14 02:54] LABS: INR 2.2; Prothrombin Time 24.4 Seconds (9.4-12.1)
[2021-03-14] MEDS ORDERED: Albumin 25% 25gram/100mL 25 GM/100 ML IV.SOLN IVPB ONE (07:32)
[2021-03-14] MEDS: Renal Vitamin 1 CAP CAPSULE PO SCH (08:29)
[2021-03-14] MEDS: Cholecalciferol (D-3) 1,000 UNIT (25MCG) TABLET PO SCH (08:29)
[2021-03-14] MEDS: Calcium Acetate 667 MG CAPSULE PO SCH ×2 (08:29→12:12)
[2021-03-14] MEDS: Metoprolol XL (24 HR) Succ 50 MG TAB.ER.24H PO SCH (08:29)
[2021-03-14] MEDS: Cholestyramine 4 GM POWD.PACK PO SCH (08:39)
[2021-03-14 15:42] VITALS: BP 95/59; PULSE 87; TEMP 98.2; O2SAT 98
[2021-03-14] MEDS ORDERED: *HR* Warfarin 3 MG TABLET PO ONE (18:00)
[2021-03-15 10:14] LABS: Pancreatic Elastase, Fecal 785 ug/g (>=100)
== END 2021-03-14 16:35 | disposition home health service (06) ==
LOC: 2ANU 12:53 → EMEROOARM 12:53 → SUATTDRO 19:26 → 2ANU 19:27
PROVIDERS: ADMIT Internal Medicine; ATTEND Internal Medicine

== ENCOUNTER 2021-03-15 16:45 | Inpatient (IN) ==
[2021-03-15] MEDS ORDERED: *HR* Metoprolol 5 MG/5 ML VIAL IVP ONE (18:11)
[2021-03-15 18:26] LABS: Basophils % 0.3 %; Eosinophils % 0.2 %; Hematocrit 31.4 % (37.5-50.1); Hemoglobin 10.1 g/dL (12.9-16.9); Immature Granulocytes % 0.6 % (0-4); Lymphocytes # 0.8 K/mcL (0.6-4.6); Lymphocytes % 8.7 %; Mean Corpuscular HGB Conc 32.2 g/dL (31.6-35.5); Mean Corpuscular Hemoglobin 32.4 pg (28.0-33.3); Mean Corpuscular Volume 100.6 fL (83.0-100.0); Mean Platelet Volume 9.5 fL (9.4-12.4); Monocytes # 0.6 K/mcL (0.0-1.3); Monocytes % 7.1 %; Neutrophils # 7.4 K/mcL (1.6-8.9); Platelet Count 363 K/mcL (140-400); Red Blood Count 3.12 M/mcL (4.19-5.50); Red Cell Distribution Width 16.2 % (11.5-14.5); Segmented Neutrophils % 83.1 %; White Blood Count 8.9 K/mcL (4.3-11.1)
[2021-03-15 18:33] LABS: INR 2.8; Prothrombin Time 30.8 Seconds (9.4-12.1)
[2021-03-15 18:36] LABS: Activated Partial Thrombo Time 46.6 Seconds (26.0-36.0)
[2021-03-15 18:55] LABS: Albumin 3.3 g/dL (3.5-5.7); Albumin/Globulin Ratio 0.9 (1.1-2.2); Bilirubin,Total 0.6 mg/dL (0.3-1.0); Calcium 8.5 mg/dL (8.6-10.3); Globulin 3.6 g/dL (2.4-3.5); Potassium 5.7 mEq/L (3.5-5.1); Total Protein 6.9 g/dL (6.4-8.9); Troponin I 0.04 ng/mL (< 0.04)
[2021-03-15 20:30] LABS: Influenza A PCR Negative (Negative); Influenza B PCR Negative (Negative); Resp. Syncytial Virus PCR Negative (Negative)
[2021-03-15 20:32] LABS: SARS-CoV-2 by PCR (In House) Negative (Negative)
[2021-03-15] MEDS ORDERED: Vancomycin 1,500 MG/265 ML IV.SOLN IVPB ONE (21:20)
[2021-03-15] MEDS ORDERED: Piperacillin/Tazobactam 3.375 GM in 0.9 % Sodium Chloride Mini Bag 100 ML IVPB ONE (21:23)
[2021-03-16] MEDS ORDERED: Metoprolol XL (24 HR) Succ 25 MG TAB.ER.24H PO STA ×3 (02:02→02:09)
[2021-03-16] MEDS ORDERED: 0.9 % Sodium Chloride 250 ML IVC PRN (08:25)
[2021-03-16] MEDS ORDERED: Albumin 25% 25gram/100mL 25 GM/100 ML IV.SOLN IVPB PRN (08:25)
[2021-03-16] MEDS ORDERED: 0.9 % Sodium Chloride 1,000 ML PRIME SCH (08:30)
[2021-03-16] MEDS ORDERED: Acetaminophen 325 MG TABLET PO PRN (08:40)
[2021-03-16] MEDS ORDERED: Ondansetron 4 MG/2 ML VIAL IVP PRN (08:40)
[2021-03-16] MEDS ORDERED: Metoprolol XL (24 HR) Succ 50 MG TAB.ER.24H PO SCH (09:00)
[2021-03-16] MEDS: predniSONE 20 MG TABLET PO SCH (11:27)
[2021-03-16] MEDS: Metoprolol XL (24 HR) Succ 50 MG TAB.ER.24H PO SCH ×2 (11:28→20:32)
[2021-03-16] MEDS ORDERED: *HR* Warfarin 3 MG TABLET PO ONE (18:00)
[2021-03-16] MEDS ORDERED: Warfarin perPT PO PRN (18:00)
[2021-03-17 01:25] LABS: Hematocrit 29.2 % (37.5-50.1); Hemoglobin 9.2 g/dL (12.9-16.9); Mean Corpuscular HGB Conc 31.5 g/dL (31.6-35.5); Mean Corpuscular Hemoglobin 31.2 pg (28.0-33.3); Mean Platelet Volume 9.4 fL (9.4-12.4); Platelet Count 306 K/mcL (140-400); Red Blood Count 2.95 M/mcL (4.19-5.50); Red Cell Distribution Width 16.2 % (11.5-14.5); White Blood Count 8.3 K/mcL (4.3-11.1)
[2021-03-17 01:38] LABS: INR 3.6; Prothrombin Time 39.8 Seconds (9.4-12.1)
[2021-03-17 01:39] LABS: Calcium 8.5 mg/dL (8.6-10.3); Potassium 4.3 mEq/L (3.5-5.1)
[2021-03-17] MEDS ORDERED: 0.9 % Sodium Chloride 250 ML IVC PRN (07:02)
[2021-03-17] MEDS: Metoprolol XL (24 HR) Succ 50 MG TAB.ER.24H PO SCH ×2 (14:29→20:54)
[2021-03-17] MEDS: predniSONE 20 MG TABLET PO SCH (14:29)
[2021-03-18 01:22] LABS: INR 2.8; Prothrombin Time 31.4 Seconds (9.4-12.1)
[2021-03-18 01:26] LABS: Calcium 8.1 mg/dL (8.6-10.3); Potassium 4.3 mEq/L (3.5-5.1)
[2021-03-18] MEDS: Metoprolol XL (24 HR) Succ 50 MG TAB.ER.24H PO SCH ×2 (09:33→20:48)
[2021-03-18] MEDS: predniSONE 20 MG TABLET PO SCH (09:33)
[2021-03-18] MEDS: Doxycycline 100 MG CAPSULE PO SCH ×2 (12:44→20:48)
[2021-03-18] MEDS ORDERED: *HR* Warfarin 1 MG TABLET PO ONE (18:00)
[2021-03-19 01:25] LABS: Hematocrit 28.6 % (37.5-50.1); Mean Corpuscular HGB Conc 31.5 g/dL (31.6-35.5); Mean Corpuscular Hemoglobin 31.9 pg (28.0-33.3); Mean Corpuscular Volume 101.4 fL (83.0-100.0); Mean Platelet Volume 9.2 fL (9.4-12.4); Platelet Count 319 K/mcL (140-400); Red Blood Count 2.82 M/mcL (4.19-5.50); Red Cell Distribution Width 16.2 % (11.5-14.5)
[2021-03-19 01:29] LABS: White Blood Count 13.1 K/mcL (4.3-11.1)
[2021-03-19 01:34] LABS: INR 2.1; Prothrombin Time 23.4 Seconds (9.4-12.1)
[2021-03-19 01:47] LABS: Calcium 8.2 mg/dL (8.6-10.3); Potassium 5.2 mEq/L (3.5-5.1)
[2021-03-19] MEDS: Doxycycline 100 MG CAPSULE PO SCH ×2 (07:49→22:19)
[2021-03-19] MEDS: Metoprolol XL (24 HR) Succ 50 MG TAB.ER.24H PO SCH ×2 (07:49→22:19)
[2021-03-19] MEDS: predniSONE 20 MG TABLET PO SCH (07:49)
[2021-03-19] MEDS: Amoxicillin/Clavulanate 500 MG TABLET PO SCH (17:10)
[2021-03-19] MEDS ORDERED: *HR* Warfarin 2 MG TABLET PO ONE (18:00)
[2021-03-20] MEDS: Doxycycline 100 MG CAPSULE PO SCH ×2 (07:48→19:27)
[2021-03-20] MEDS: predniSONE 20 MG TABLET PO SCH (07:49)
[2021-03-20] MEDS: Amoxicillin/Clavulanate 500 MG TABLET PO SCH (07:49)
[2021-03-20] MEDS: Metoprolol XL (24 HR) Succ 50 MG TAB.ER.24H PO SCH ×2 (07:49→19:27)
[2021-03-20] MEDS ORDERED: 0.9 % Sodium Chloride 250 ML IVC PRN (08:38)
[2021-03-20] MEDS ORDERED: 0.9 % Sodium Chloride 1,000 ML PRIME SCH (08:45)
[2021-03-20] MEDS ORDERED: Amoxicillin/Clavulanate 500 MG TABLET PO SCH (17:00)
[2021-03-20] MEDS ORDERED: *HR* Warfarin 3 MG TABLET PO ONE (18:00)
[2021-03-20 18:26] LABS: INR 1.8; Prothrombin Time 20.2 Seconds (9.4-12.1)
[2021-03-20 18:38] LABS: Calcium 8.5 mg/dL (8.6-10.3); Potassium 4.8 mEq/L (3.5-5.1)
[2021-03-20] MEDS ORDERED: Perit. Dialysis with Dex 2.5 % 12,000 ML PERITONEAL ONE (19:00)
[2021-03-21 04:56] LABS: INR 1.8; Prothrombin Time 20.5 Seconds (9.4-12.1)
[2021-03-21] MEDS: Metoprolol XL (24 HR) Succ 50 MG TAB.ER.24H PO SCH (09:39)
[2021-03-21] MEDS: Doxycycline 100 MG CAPSULE PO SCH (09:40)
[2021-03-21 11:48] VITALS: BP 128/68; PULSE 76; TEMP 98.1; O2SAT 97
[2021-03-21] MEDS ORDERED: *HR* Warfarin 3 MG TABLET PO ONE (18:00)
== END 2021-03-21 16:27 | DRG 91 ==
LOC: 2ANU 16:45 → EMEROOARM 16:45 → SUATTDRO 03-16 11:15 → 2ANU 03-16 13:14
PROVIDERS: ADMIT Internal Medicine; ATTEND Family Medicine

== ENCOUNTER 2021-04-02 21:02 | Observation (INO) ==
[2021-04-02] MEDS ORDERED: 0.9 % Sodium Chloride 500 ML IVC ONE (21:57)
[2021-04-02 22:23] LABS: Basophils % 0.4 %; Eosinophils % 0.4 %; Hematocrit 20.2 % (37.5-50.1); Hemoglobin 6.2 g/dL (12.9-16.9); Immature Granulocytes % 0.4 % (0-4); Lymphocytes # 0.7 K/mcL (0.6-4.6); Lymphocytes % 9.3 %; Mean Corpuscular HGB Conc 30.7 g/dL (31.6-35.5); Mean Corpuscular Volume 104.1 fL (83.0-100.0); Monocytes # 0.5 K/mcL (0.0-1.3); Monocytes % 6.7 %; Neutrophils # 6.1 K/mcL (1.6-8.9); Nucleated Red Blood Cells 0.3 /100 WBC (0); Platelet Count 168 K/mcL (140-400); Red Blood Count 1.94 M/mcL (4.19-5.50); Red Cell Distribution Width 18.1 % (11.5-14.5); Segmented Neutrophils % 82.8 %; White Blood Count 7.4 K/mcL (4.3-11.1)
[2021-04-02 22:30] LABS: Activated Partial Thrombo Time 58.8 Seconds (26.0-36.0)
[2021-04-02 22:37] LABS: INR 8.7; Prothrombin Time 95.4 Seconds (9.4-12.1)
[2021-04-02 23:00] LABS: Albumin 3.2 g/dL (3.5-5.7); Albumin/Globulin Ratio 1.1 (1.1-2.2); Bilirubin,Indirect 0.4 mg/dL (0.0-1.0); Bilirubin,Total 0.4 mg/dL (0.3-1.0); Calcium 8.5 mg/dL (8.6-10.3); Globulin 2.8 g/dL (2.4-3.5); Magnesium 1.8 mg/dL (1.6-2.6); Potassium 5.3 mEq/L (3.5-5.1); Troponin I 0.05 ng/mL (< 0.04)
[2021-04-02] MEDS ORDERED: Pantoprazole 40 MG VIAL IVP ONE (23:28)
[2021-04-02] MEDS: 0.9 % Sodium Chloride 1,000 ML IVC SCH (23:29)
[2021-04-03] MEDS ORDERED: Ondansetron 4 MG/2 ML VIAL IVP PRN (00:52)
[2021-04-03] MEDS ORDERED: Naloxone 0.4 MG/ML INJ IVP PRN (00:52)
[2021-04-03] MEDS ORDERED: 0.9 % Sodium Chloride 1,000 ML IVC SCH (01:00)
[2021-04-03 05:28] LABS: Hematocrit 23.9 % (37.5-50.1); Hemoglobin 7.2 g/dL (12.9-16.9); Mean Corpuscular HGB Conc 30.1 g/dL (31.6-35.5); Mean Corpuscular Hemoglobin 31.3 pg (28.0-33.3); Mean Corpuscular Volume 103.9 fL (83.0-100.0); Mean Platelet Volume 9.8 fL (9.4-12.4); Platelet Count 150 K/mcL (140-400); White Blood Count 7.8 K/mcL (4.3-11.1)
[2021-04-03 05:37] LABS: INR 2.3; Prothrombin Time 25.5 Seconds (9.4-12.1)
[2021-04-03 05:59] LABS: Calcium 7.9 mg/dL (8.6-10.3); Potassium 5.2 mEq/L (3.5-5.1)
[2021-04-03 06:17] LABS: Troponin I 0.1 ng/mL (< 0.04)
[2021-04-03] MEDS ORDERED: *HR* Metoprolol 5 MG/5 ML VIAL IVP PRN (07:31)
[2021-04-03] MEDS: Renal Vitamin 1 CAP CAPSULE PO SCH (08:06)
[2021-04-03] MEDS: Pantoprazole 40 MG VIAL IVP SCH ×2 (08:06→21:38)
[2021-04-03] MEDS: Calcium Acetate 667 MG CAPSULE PO SCH ×3 (08:06→18:16)
[2021-04-03] MEDS ORDERED: 0.9 % Sodium Chloride 250 ML IVC PRN (08:48)
[2021-04-03] MEDS ORDERED: *HR* Heparin 10,000 UNIT/10 ML VIAL IV PRN (08:48)
[2021-04-03] MEDS ORDERED: 0.9 % Sodium Chloride 1,000 ML PRIME SCH (09:00)
[2021-04-03 13:38] LABS: Hematocrit 27.1 % (37.5-50.1); Hemoglobin 8.6 g/dL (12.9-16.9)
[2021-04-03 14:08] LABS: Hepatitis B Surface Antibody < 3.10 mIU/mL
[2021-04-03 14:19] LABS: Hepatitis B Surface Antigen Nonreactive (Nonreactive)
[2021-04-03] MEDS: Metoprolol XL (24 HR) Succ 25 MG TAB.ER.24H PO SCH (21:38)
[2021-04-04 03:15] LABS: Basophils % 0.5 %; Eosinophils # 0.2 K/mcL (0.0-0.6); Eosinophils % 2.8 %; Hemoglobin 8.6 g/dL (12.9-16.9); Immature Granulocytes % 0.5 % (0-4); Lymphocytes # 0.8 K/mcL (0.6-4.6); Lymphocytes % 12.6 %; Mean Corpuscular HGB Conc 33.1 g/dL (31.6-35.5); Mean Corpuscular Hemoglobin 31.4 pg (28.0-33.3); Mean Platelet Volume 9.5 fL (9.4-12.4); Monocytes # 0.4 K/mcL (0.0-1.3); Monocytes % 6.6 %; Neutrophils # 4.6 K/mcL (1.6-8.9); Platelet Count 143 K/mcL (140-400); Red Blood Count 2.74 M/mcL (4.19-5.50); Red Cell Distribution Width 20.1 % (11.5-14.5)
[2021-04-04 03:16] LABS: Mean Corpuscular Volume 94.9 fL (83.0-100.0)
[2021-04-04 03:21] LABS: Potassium 3.9 mEq/L (3.5-5.1)
[2021-04-04 03:23] LABS: Troponin I 0.72 ng/mL (< 0.04)
[2021-04-04 03:49] LABS: INR 1.1; Prothrombin Time 12.5 Seconds (9.4-12.1)
[2021-04-04] MEDS: Calcium Acetate 667 MG CAPSULE PO SCH ×3 (07:24→17:08)
[2021-04-04] MEDS: Renal Vitamin 1 CAP CAPSULE PO SCH (07:25)
[2021-04-04] MEDS: Metoprolol XL (24 HR) Succ 25 MG TAB.ER.24H PO SCH (07:25)
[2021-04-04] MEDS: Pantoprazole 40 MG VIAL IVP SCH ×2 (08:33→20:29)
[2021-04-04] MEDS ORDERED: Lidocaine -MPF 2% 5 ML VIAL ONE (13:23)
[2021-04-04] MEDS: 0.9 % Sodium Chloride 1,000 ML IVC SCH ×2 (19:37→19:38)
[2021-04-05 03:57] LABS: Basophils % 0.4 %; Eosinophils # 0.1 K/mcL (0.0-0.6); Eosinophils % 2.6 %; Hematocrit 25.4 % (37.5-50.1); Immature Granulocytes % 0.4 % (0-4); Lymphocytes # 0.9 K/mcL (0.6-4.6); Lymphocytes % 17.6 %; Mean Corpuscular HGB Conc 31.5 g/dL (31.6-35.5); Mean Corpuscular Hemoglobin 30.8 pg (28.0-33.3); Mean Corpuscular Volume 97.7 fL (83.0-100.0); Mean Platelet Volume 9.6 fL (9.4-12.4); Monocytes # 0.4 K/mcL (0.0-1.3); Monocytes % 8.1 %; Neutrophils # 3.8 K/mcL (1.6-8.9); Platelet Count 127 K/mcL (140-400); Red Cell Distribution Width 20.8 % (11.5-14.5); Segmented Neutrophils % 70.9 %; White Blood Count 5.3 K/mcL (4.3-11.1)
[2021-04-05 04:15] LABS: Calcium 7.8 mg/dL (8.6-10.3); Potassium 4.2 mEq/L (3.5-5.1)
[2021-04-05 07:00] VITALS: O2SAT 97
[2021-04-05] MEDS ORDERED: Metoprolol XL (24 HR) Succ 50 MG TAB.ER.24H PO SCH (09:00)
[2021-04-05] MEDS: Calcium Acetate 667 MG CAPSULE PO SCH ×2 (10:50→14:34)
[2021-04-05 14:31] VITALS: PULSE 94
[2021-04-05] MEDS: Renal Vitamin 1 CAP CAPSULE PO SCH (14:34)
[2021-04-05] MEDS: Pantoprazole 40 MG VIAL IVP SCH (14:34)
[2021-04-05 14:49] VITALS: BP 155/84; TEMP 97.2
== END 2021-04-05 18:02 | disposition home health service (06) ==
LOC: 2NENU 21:02 → EMEROOARM 21:02 → SUATTDRO 04-03 00:57 → 2NENU 04-03 01:28
PROVIDERS: ADMIT Internal Medicine; ATTEND Internal Medicine

== ENCOUNTER 2021-09-16 11:22 | Observation (INO) ==
[2021-09-16] MEDS ORDERED: 0.9 % Sodium Chloride 500 ML IVC ONE ×2 (11:49→12:45)
[2021-09-16 12:16] LABS: Basophils % 0.5 %; Eosinophils # 0.1 K/mcL (0.0-0.6); Hematocrit 41.5 % (37.5-50.1); Hemoglobin 13.8 g/dL (12.9-16.9); Immature Granulocytes % 0.3 % (0-4); Lymphocytes % 17.5 %; Mean Corpuscular HGB Conc 33.3 g/dL (31.6-35.5); Mean Corpuscular Hemoglobin 34.3 pg (28.0-33.3); Mean Corpuscular Volume 103.2 fL (83.0-100.0); Mean Platelet Volume 9.3 fL (9.4-12.4); Monocytes # 0.5 K/mcL (0.0-1.3); Monocytes % 8.4 %; Neutrophils # 4.3 K/mcL (1.6-8.9); Platelet Count 195 K/mcL (140-400); Red Blood Count 4.02 M/mcL (4.19-5.50); Red Cell Distribution Width 14.9 % (11.5-14.5); Segmented Neutrophils % 72.3 %; White Blood Count 5.9 K/mcL (4.3-11.1)
[2021-09-16 12:40] LABS: Calcium 9.2 mg/dL (8.6-10.3); Potassium 3.6 mEq/L (3.5-5.1); Troponin I 0.04 ng/mL (< 0.04)
[2021-09-16] MEDS ORDERED: Naloxone 0.4 MG/ML INJ IVP PRN (16:59)
[2021-09-16] MEDS ORDERED: *HR* Dextrose 50 % in Water (Syg) 50 ML SYRINGE IVP PRN (16:59)
[2021-09-16] MEDS ORDERED: Perflutren Lipid Microsphere 1.3 ML in 0.9 % Sodium Chloride 8.7 ML IVP PRN (16:59)
[2021-09-16] MEDS ORDERED: D5% in Water 1,000 ML IVC PRN (16:59)
[2021-09-16] MEDS ORDERED: Dextrose 4 GM Chewable Tablets PO PRN ×2 (16:59)
[2021-09-16 19:10] LABS: Estimated Average Glucose 111 mg/dl; Hemoglobin A1C 5.5 %
[2021-09-16] MEDS ORDERED: Insulin LISPRO 300 UNITS/3 ML VIAL SUBQ SCH (21:00)
[2021-09-17] MEDS ORDERED: 0.9 % Sodium Chloride 500 ML IVC ONE (00:28)
[2021-09-17] MEDS ORDERED: Albumin 25% 25gram/100mL 25 GM/100 ML IV.SOLN IVPB ONE (00:28)
[2021-09-17 02:40] LABS: Basophils # 0.1 K/mcL (0.0-0.2); Basophils % 0.7 %; Eosinophils # 0.1 K/mcL (0.0-0.6); Eosinophils % 1.4 %; Hematocrit 35.1 % (37.5-50.1); Immature Granulocytes % 0.1 % (0-4); Lymphocytes # 1.3 K/mcL (0.6-4.6); Lymphocytes % 18.7 %; Mean Corpuscular HGB Conc 33.3 g/dL (31.6-35.5); Mean Corpuscular Hemoglobin 34.3 pg (28.0-33.3); Mean Corpuscular Volume 102.9 fL (83.0-100.0); Mean Platelet Volume 8.7 fL (9.4-12.4); Monocytes # 0.6 K/mcL (0.0-1.3); Monocytes % 9.2 %; Neutrophils # 4.9 K/mcL (1.6-8.9); Platelet Count 155 K/mcL (140-400); Red Blood Count 3.41 M/mcL (4.19-5.50); Red Cell Distribution Width 14.5 % (11.5-14.5); Segmented Neutrophils % 69.9 %
[2021-09-17 02:54] LABS: Calcium 8.8 mg/dL (8.6-10.3); Chol/HDL Ratio 1.8 (0-4.9); Magnesium 1.5 mg/dL (1.6-2.6); Phosphorous 6.3 mg/dL (2.7-4.5); Potassium 4.3 mEq/L (3.5-5.1)
[2021-09-17 02:57] LABS: Hemoglobin 11.7 g/dL (12.9-16.9)
[2021-09-17] MEDS: Insulin LISPRO 300 UNITS/3 ML VIAL SUBQ SCH ×2 (08:07→12:03)
[2021-09-17] MEDS ORDERED: Aspirin 81 MG TAB.CHEW PO SCH (09:00)
[2021-09-17] MEDS ORDERED: Magnesium Oxide 400 MG TABLET PO ONE (10:27)
[2021-09-17 10:49] VITALS: BP 87/57; PULSE 95; TEMP 97.9; O2SAT 97
== END 2021-09-17 14:00 | disposition home health service (06) ==
LOC: EMEROOARM 11:22 → 2NENU 11:22 → SUATTDRO 14:20 → 2NENU 15:36
PROVIDERS: ADMIT Pharmacist; ATTEND Family Medicine

== ENCOUNTER 2021-10-06 10:22 | Observation (INO) ==
[2021-10-06 12:22] LABS: Basophils % 0.5 %; Eosinophils % 0.3 %; Hematocrit 42.4 % (37.5-50.1); Hemoglobin 14.1 g/dL (12.9-16.9); Immature Granulocytes % 0.3 % (0-4); Lymphocytes # 0.8 K/mcL (0.6-4.6); Mean Corpuscular HGB Conc 33.3 g/dL (31.6-35.5); Mean Corpuscular Hemoglobin 34.8 pg (28.0-33.3); Mean Corpuscular Volume 104.7 fL (83.0-100.0); Mean Platelet Volume 9.2 fL (9.4-12.4); Monocytes # 0.6 K/mcL (0.0-1.3); Monocytes % 7.1 %; Neutrophils # 7.1 K/mcL (1.6-8.9); Platelet Count 210 K/mcL (140-400); Red Blood Count 4.05 M/mcL (4.19-5.50); Red Cell Distribution Width 13.6 % (11.5-14.5); Segmented Neutrophils % 82.8 %; White Blood Count 8.6 K/mcL (4.3-11.1)
[2021-10-06 12:39] LABS: Calcium 9.9 mg/dL (8.6-10.3); Potassium 4.1 mEq/L (3.5-5.1)
[2021-10-06] MEDS ORDERED: Naloxone 0.4 MG/ML INJ IVP PRN (15:02)
[2021-10-06] MEDS ORDERED: 0.9 % Sodium Chloride 250 ML IVC PRN (15:03)
[2021-10-06] MEDS ORDERED: Ethyl Chloride Spray Bottle (104 SPRAY/BOTTLE) TP PRN (15:03)
[2021-10-06] MEDS ORDERED: 0.9 % Sodium Chloride 2,000 ML PRIME SCH (15:15)
[2021-10-06] MEDS: *HR* Heparin 5,000 UNIT/ML VIAL SQ SCH (18:05)
[2021-10-06 19:34] LABS: Hepatitis B Surface Antibody < 3.10 mIU/mL
[2021-10-06 19:45] LABS: Hepatitis B Surface Antigen Nonreactive (Nonreactive)
[2021-10-07 02:14] LABS: Basophils % 0.4 %; Eosinophils % 0.1 %; Hemoglobin 13.5 g/dL (12.9-16.9); Immature Granulocytes % 0.3 % (0-4); Lymphocytes # 0.8 K/mcL (0.6-4.6); Lymphocytes % 10.3 %; Mean Corpuscular HGB Conc 32.9 g/dL (31.6-35.5); Mean Corpuscular Hemoglobin 33.8 pg (28.0-33.3); Mean Corpuscular Volume 102.8 fL (83.0-100.0); Monocytes # 0.7 K/mcL (0.0-1.3); Monocytes % 9.1 %; Neutrophils # 5.8 K/mcL (1.6-8.9); Platelet Count 189 K/mcL (140-400); Red Blood Count 3.99 M/mcL (4.19-5.50); Red Cell Distribution Width 13.4 % (11.5-14.5); Segmented Neutrophils % 79.8 %; White Blood Count 7.3 K/mcL (4.3-11.1)
[2021-10-07 02:30] LABS: Calcium 9.2 mg/dL (8.6-10.3); Magnesium 1.6 mg/dL (1.6-2.6); Phosphorous 3.4 mg/dL (2.7-4.5); Potassium 4.3 mEq/L (3.5-5.1)
[2021-10-07] MEDS: *HR* Heparin 5,000 UNIT/ML VIAL SQ SCH (05:10)
[2021-10-07 07:01] VITALS: BP 91/60; PULSE 72; TEMP 97.5; O2SAT 92
[2021-10-07] MEDS ORDERED: Aspirin Enteric Coated 81 MG Tablet PO SCH (09:00)
== END 2021-10-07 13:00 | disposition home or self-care (01) ==
LOC: EMEROOARM 10:22 → 2ANU 10:22
PROVIDERS: ADMIT Hospitalist; ATTEND Hospitalist